=== PATIENT | female | born 1995 | race American Indian/Alaskan Native ===

== ENCOUNTER 2023-07-31 16:40 | Emergency (ER) | payer OTHER, SELFPAY ==
[2023-07-31] VITALS (12 sets, daily range): BP systolic 102–149; BP diastolic 68–92; PULSE 102–127; RESP 13–22; TEMP 36.8; O2SAT 94–100; BMI 38.0
--- NOTE | 2023-07-31 18:20 | ED_ITS ---
HPI - Headache General Chief Complaint: Headache Stated Complaint: seizures T-14 headaches Time Seen by Provider: 07/31/23 18:03 Mode of arrival: Ambulatory History of Present Illness HPI Narrative: Patient 28-year-old female history of asthma migraine headaches presenting today with headache ongoing for the last 2 weeks. She reports that she has been to the ED twice a day in [place] she was received a migraine cocktail she reports that it does not really help. She takes Nurtec and ibuprofen along with gabapentin for a seizure disorder. She reports over the last 3 days her headache has gotten worse she. She has had multiple episodes of diarrhea and vomiting she reports about 5-6 episodes of diarrhea daily and about 3 times vomiting. Her headache has gotten worse. She sensitive to light and noise. Admits to a fever couple days ago but is currently afebrile. She has minimal neck pain. Some mild abdominal pain. She thinks she may have had a CT but really unsure but this is atypical for her migraine headache to last this long. She is visiting from [place] set to work at the [employer] for the next month during shut down Related Data Allergies Allergy/AdvReac Type Severity Reaction Status Date / Time latex AdvReac Hives Verified 07/31/23 16:51 Patient History Social History Smoking Status: Never smoker Smoking Status: Never smoker Substance Use Type: does not use Exam Initial Vital Signs Initial Vital Signs: Vital Signs Temperature 98.2 F 07/31/23 16:51 Pulse Rate 102 H 07/31/23 16:51 Respiratory Rate 18 07/31/23 16:51 Blood Pressure 149/92 H 07/31/23 16:51 Pulse Oximetry 100 07/31/23 16:51 Oxygen Delivery Method Room Air 07/31/23 16:51 GENERAL: Alert pleasant 28-year-old female appears mildly uncomfortable and in [no acute] distress. HEENT: Head atraumatic,EOMI, pupils reactive, face symmetric, no meningeal sign negative Kernig and Brudzinski sign CARDIOVASCULAR: Regular rate and rhythm without murmurs, rubs or gallops. RESPIRATORY: Breath sounds equal bilaterally, no wheezes rales or rhonchi. ABDOMEN: Soft, nontender. Normoactive bowel sounds all 4 quadrants. No guarding or rebound. EXTREMITIES: Normal range of motion, no clubbing or edema. Neurovascularly intact NEUROLOGICAL: Alert and oriented x4.Normal gait and speech. SKIN: Warm, dry, no laceration, no petechiae, no rashes or lesions. Course Orders Ordered: ED Orders 07/31/23 18:15 CBC Auto Diff [Complete Blood Count AUTO DIFF] Stat CMP [Comprehensive Metabolic Panel] Stat Lactate (Lactic Acid) Stat 07/31/23 18:50 Covid-19 + FLU A/B + RSV - PCR Stat 07/31/23 18:56 CT head/brain wo con Stat Discontinued Medications Dexamethasone (Dexamethasone 10 Mg/Ml Vial) 6 mg IV NOW ONE Stop: 07/31/23 18:57 Last Admin: 07/31/23 19:27 Dose: 6 mg Documented By: SYEDA Dihydroergotamine Mesylate (Dihydroergotamine 1 Mg/Ml Ampul) 1 mg IV NOW ONE Stop: 07/31/23 18:57 Diphenhydramine HCl (Diphenhydramine 50 Mg/Ml Vial) 25 mg IV NOW ONE Stop: 07/31/23 18:26 Last Admin: 07/31/23 19:24 Dose: 25 mg Documented By: SYEDA Sodium Chloride (Normal Saline 0.9%) 1,000 mls @ 1,000 mls/hr IV BOLUS ONE Stop: 07/31/23 19:24 Last Infusion: 07/31/23 19:45 Dose: Infused Documented By: Admin: 07/31/23 18:43 Dose: 1,000 mls/hr Documented By: OFE Ketorolac Tromethamine (Ketorolac 30 Mg/Ml Vial) 15 mg IV NOW ONE Stop: 07/31/23 18:26 Last Admin: 07/31/23 19:28 Dose: 15 mg Documented By: SYEDA Prochlorperazine (Prochlorperazine 10 Mg/2 Ml Vial) 10 mg IV NOW ONE Stop: 07/31/23 18:26 Last Admin: 07/31/23 19:25 Dose: 10 mg Documented By: SYEDA Vital Signs Vital signs: Vital Signs - 8 hr 07/31/23 19:00 07/31/23 19:00 07/31/23 19:14 Pulse Rate 125 H Respiratory Rate 13 Blood Pressure 122/73 118/75 Pulse Oximetry 96 07/31/23 19:14 07/31/23 19:25 07/31/23 19:30 Pulse Rate 126 H 126 H 122 H Respiratory Rate 19 19 Blood Pressure 118/75 Pulse Oximetry 97 97 07/31/23 19:32 07/31/23 19:32 Pulse Rate 121 H Respiratory Rate 17 Blood Pressure 125/80 Pulse Oximetry 97 MDM - Headache Lab Data 07/31/23 18:15 07/31/23 18:15 Labs: Lab Results 07/31/23 07/31/23 Range/Units 18:15 18:50 WBC 8.9 (4.5-11.0) X10^3/uL RBC 4.30 (4.0-5.2) X10^6/uL Hgb 13.4 (12.0-16.0) g/dL Hct 39.5 (36-46) % MCV 91.7 (80-100) fL MCH 31.1 (26-34) PG MCHC 33.9 (30-36) % RDW 12.5 (11.6-14.8) % Plt Count 238 (150-400) X10^3/uL Neut % (Auto) 90.1 H (50-75) % Lymph % (Auto) 9.1 L (25-40) % Potter % (Auto) 0.6 L (3-14) % Eos % (Auto) 0.0 L (2-4) % Baso % (Auto) 0.2 (0-2) % Neut # (Auto) 8000 H (6880-2859) /uL Lymph # (Auto) 800 L (6922-2544) /uL Potter # (Auto) 100 (0-900) /uL Eos # (Auto) 0 (0-450) /uL Baso # (Auto) 0 (0-100) /uL Sodium 142 (137-145) mmol/L Potassium 3.9 (3.4-5.1) mmol/L Chloride 113 H (98-107) mmol/L Carbon Dioxide 21 L (22-32) mmol/L BUN 10 (7-17) mg/dL Creatinine 0.68 (0.52-1.04) mg/dL Estimated GFR > 60 (>60) mL/min BUN/Creatinine Ratio 14.7 (6-22) Glucose 140 H (70-100) mg/dL Lactate 3.2 H (0.7-2.1) mmol/L Calcium 9.0 (8.4-10.2) mg/dL Total Bilirubin 0.4 (0.2-1.3) mg/dL AST 23 (14-36) IU/L ALT 23 (<35) IU/L Alkaline Phosphatase 53 (38-126) U/L Total Protein 7.6 (6.3-8.2) g/dL Albumin 4.4 (3.5-5.0) g/dL Globulin 3.2 (1.7-4.1) g/dL Albumin/Globulin Ratio 1.4 (1.0-2.8) SARS-CoV-2 (PCR) Negative (Negative) Influenza A (RT-PCR) Flu a negative (NEGATIVE) Influenza B (RT-PCR) Flu b negative (NEGATIVE) RSV (PCR) Negative (Negative) Point of Care Testing Test Results Negative Urine Dip Bedside Urine Glucose Negative Bedside Urine Bilirubin - Negative Bedside Urine Ketone ++ 40 Urine Specific Zearing 1.015 Bedside Urine Occult Blood - Negative Bedside Urine pH 6.0 Bedside Urine Protein - Negative Bedside Urine Urobilinogen - Negative Bedside Urine Nitrite - Negative Bedside Urine Leukocytes - Negative Esterase Imaging Data CT scan - head: Radiologist's Impression: PROCEDURE: CT HEAD/BRAIN WO CON INDICATIONS: on going headache x 2 weeks TECHNIQUE: Noncontrast 4.5 mm thick angled axial sections acquired from the foramen magnum to the vertex, with coronal and sagittal reformats. For radiation dose reduction, the following was used: automated exposure control, adjustment of mA and/or kV according to patient size. COMPARISON: None. FINDINGS: Image quality: Diagnostic. CSF spaces: Basal cisterns are patent. No extra-axial fluid collections. Ventricles are normal in size and shape. Brain: No midline shift. No intracranial masses or hemorrhage. Mendez-white matter interface is normal. Skull and face: Calvarium and visualized facial bones are intact, without suspicious lesions. Sinuses: Visualized sinuses and mastoids are clear. IMPRESSION: No acute intracranial pathology. MDM Narrative Medical decision making narrative: Patient 28-year-old female history of migraine headaches presenting today for an ongoing migraine headache with nausea vomiting and diarrhea for the last 3 days. She reports fever at home but is afebrile here. No concern for meningitis or encephalitis at this time she appears uncomfortable but well. Discussed with her migraine cocktail which he is hesitant have she has had it before and it does not typically work. However with her nausea vomiting I do think that Compazine would be appropriate along with some abdominal cramping Toradol may help. If she continues to have headache will give DHE she is agreeable to this plan. She is unclear she has had CT head. Will get a CT scan today we do not have access to records from [place]. CT head is negative Blood work has been reviewed, she had a lactate of 3.2 no leukocytosis chloride 113 bicarb 21 glucose 140 viral panel negative Patient was quite tachycardic in the ED but afebrile. With ongoing headache. CT does not show any through intracranial mass or hemorrhage. Symptoms are most consistent with a persistent migraine. Unfortunately before I could go over any of patient's results she left was unable to discuss any of this with her. She overall did not appear toxic no concern for meningitis. Patient eloped Discharge Plan Departure Patient Disposition: Left Against Medical Advice Clinical Impression: Patient left before treatment completed Referrals: Miscellaneous,Doctor, [Primary Care Provider] - Stand Alone Forms: Patient Portal/API, Against Medical Advice
[2023-07-31 18:33] LABS: Add Manual Diff / Slide Review NO; Basophils Absolute Auto 0 /uL (0-100); Basophils Percent Auto 0.2 % (0-2); Eosinophils Absolute Auto 0 /uL (0-450); Hematocrit 39.5 % (36-46); Hemoglobin 13.4 g/dL (12.0-16.0); Lymphocytes Absolute Auto 800 /uL (1100-4500); Lymphocytes Percent Auto 9.1 % (25-40); Mean Corpuscular HGB Conc 33.9 % (30-36); Mean Corpuscular Hemoglobin 31.1 PG (26-34); Mean Corpuscular Volume 91.7 fL (80-100); Monocytes Absolute Auto 100 /uL (0-900); Monocytes Percent Auto 0.6 % (3-14); Neutrophils Absolute Auto 8000 /uL (1500-7000); Neutrophils Percent Auto 90.1 % (50-75); Platelet Count 238 X10^3/uL (150-400); Red Cell Distribution Width 12.5 % (11.6-14.8); White Blood Cell Count 8.9 X10^3/uL (4.5-11.0)
[2023-07-31] MEDS: SODIUM CHLORIDE 0.9% 1,000 ML 1000 ML IV (18:43)
[2023-07-31 18:49] LABS: Lactate (Lactic Acid) 3.2 mmol/L (0.7-2.1)
[2023-07-31 18:50] LABS: Alanine Aminotransferase 23 IU/L (<35); Albumin 4.4 g/dL (3.5-5.0); Albumin Globulin Ratio 1.4 (1.0-2.8); Alkaline Phosphatase 53 U/L (38-126); Aspartate Aminotransferase 23 IU/L (14-36); BUN Creatinine Ratio 14.7 (6-22); Bilirubin Total 0.4 mg/dL (0.2-1.3); Blood Urea Nitrogen 10 mg/dL (7-17); Carbon Dioxide 21 mmol/L (22-32); Chloride 113 mmol/L (98-107); Estimated Glomerular Filt Rate > 60 mL/min (>60); Globulin 3.2 g/dL (1.7-4.1); Glucose 140 mg/dL (70-100); HEMOLYSIS < 15 (0-50); Potassium 3.9 mmol/L (3.4-5.1); Sodium 142 mmol/L (137-145); Total Protein 7.6 g/dL (6.3-8.2)
--- NOTE | 2023-07-31 18:56 | DI.CT.S_ITS ---
PROCEDURE: CT HEAD/BRAIN WO CON INDICATIONS: on going headache x 2 weeks TECHNIQUE: Noncontrast 4.5 mm thick angled axial sections acquired from the foramen magnum to the vertex, with coronal and sagittal reformats. For radiation dose reduction, the following was used: automated exposure control, adjustment of mA and/or kV according to patient size. COMPARISON: None. FINDINGS: Image quality: Diagnostic. CSF spaces: Basal cisterns are patent. No extra-axial fluid collections. Ventricles are normal in size and shape. Brain: No midline shift. No intracranial masses or hemorrhage. Mendez-white matter interface is normal. Skull and face: Calvarium and visualized facial bones are intact, without suspicious lesions. Sinuses: Visualized sinuses and mastoids are clear. IMPRESSION: No acute intracranial pathology. Dictated by: Leilani Hernandez M.D. on 07/31/2023 at 19:36 Approved by: Leilani Hernandez M.D. on 07/31/2023 at 19:40
--- NOTE | 2023-07-31 19:11 | PC.NURSE ---
Report given to [place]
[2023-07-31] MEDS: diphenhydrAMINE 50 MG/ML VIAL 25 MG IV (19:24)
[2023-07-31] MEDS: PROCHLORPERAZINE 10 MG/2 ML VIAL IV (19:25)
[2023-07-31] MEDS: DEXAMETHASONE 10 MG/ML VIAL 6 MG IV (19:27)
[2023-07-31] MEDS: KETOROLAC 30 MG/ML VIAL 15 MG IV (19:28)
[2023-07-31 19:49] LABS: Influenza A - CEPHEID Flu A NEGATIVE (NEGATIVE); Influenza B - CEPHEID Flu B NEGATIVE (NEGATIVE); Respiratory Syncytial Virus Negative (Negative)
[2023-07-31 19:50] LABS: COVID-19 CEPHEID 4-PLEX PCR Negative (Negative)
--- NOTE | 2023-07-31 19:55 | PC.NURSE ---
Pt required a one person assist with standing and pivoting to a wheelchair. Pt reports difficulty ambulating to weakness and pain. Pt and pt's daughter reports that this is not the pt's baseline for ambulation. Pt denies dizziness.
[2023-07-31 20:05] LABS: Reflexed Lactate in 2 Hours Y
--- NOTE | 2023-07-31 20:06 | PC.NURSE ---
5: This RN got reports from day shift and went into room to assess patient. Pt confirms CC and medical hx with this RN. This RN updates pt on plan of care and that we are waiting for CT results. This RN also give pt education the medications that have been ordered to treat her migraine. Pt is agreeable to plan.
--- NOTE | 2023-07-31 20:08 | PC.NURSE ---
1999 ED TIRE INSPECTOR reports to this RN that patient wants to leave. Pt proceeds to walk out of the department and refuses to speak with this RN. This RN confirms that pt has removed the IV herself and attempts to speak with pt. Pt refuses and leaves with her cathleen family members. Pt walks with a steady gait and speaks in full clear sentences.
== END 2023-07-31 20:11 | disposition left against medical advice (07) ==
PROVIDERS: Emergency Provider Emergency Medicine
DX: G43.909 Migraine, unspecified, not intractable, without status migrainosus (principal); R11.2 Nausea with vomiting, unspecified; R19.7 Diarrhea, unspecified; R00.0 Tachycardia, unspecified; Z53.29 Procedure and treatment not carried out because of patient's decision for other reasons
CPT/HCPCS: 0241U; 36415; 70450; 80053; 81003; 81025; 83605; 85025; 93005; 93010; 96374; 96375; 99284; J0780; J1100; J1200; J1885

== ENCOUNTER 2023-08-01 12:26 | Emergency (ER) | payer OTHER, SELFPAY ==
[2023-08-01] VITALS (10 sets, daily range): BP systolic 124–146; BP diastolic 67–82; PULSE 73–105; RESP 13–25; TEMP 36.3; O2SAT 99–100; BMI 38.7
--- NOTE | 2023-08-01 12:49 | ED_ITS ---
HPI - Seizure General Chief Complaint: Seizure Stated Complaint: seizure, headache Time Seen by Provider: 08/01/23 12:48 Source: patient Mode of arrival: Ambulatory Limitations: no limitations History of Present Illness HPI Narrative: 28-year-old female with history of asthma, migraine headaches and seizure disorder. Patient was seen last night but left in the department but or completing her workup. Patient presents today with complaint of seizure activity x2. Reports that she left her seizure medication in [place]. She takes Nurtec and ibuprofen along with gabapentin 800mg BID for seizure disorder. Patient states she has been out of her gabapentin for the past 3 days. She accidentally left it in [place] before she came out here. She states she has had persistent headache for the past week she does get a history of migraines she has had some numbness tingling of her right cheek arm which she states has happened with her past migraines as well. She states it seems more intense. Her vision has been sort of spotty. Patient states no syncope. No fevers. No neck pain. No chest pain, no shortness of breath. She has had some nausea and vomiting. She has had a little bit of diarrhea but no black or bloody stools. No urinary symptoms. No bowel or bladder incontinence. She states she would 2 witnessed episodes of seizure activity by her sister. Sister is not present to give more information. She states she has epileptic seizures but does not know the names of them. Patient does state she sees Dr. Valenzuela in [facility] as her regular neurologist. She states she has been seizure-free for a couple years. She notes that she has had multiple surgeries including cholecystectomy, , tubal ligation, bilateral shoulder surgeries and cyst removal. She denies tobacco, alcohol or recreational drugs. She is currently staying in the area with family while working at the [employer]. Related Data Previous Rx's Medication Instructions Recorded gwmkkwnbng-baphalzaoneqo-bqrsuekj 1 cap PO Q6H PRN pain #10 caps 08/01/23 50 mg-300 mg-40 mg capsule (Fioricet) gabapentin 800 mg tablet 800 mg PO BID #60 tabs 08/01/23 ondansetron 4 mg disintegrating 4 mg PO QID PRN nausea and 08/01/23 tablet vomiting #10 tabs Allergies Allergy/AdvReac Type Severity Reaction Status Date / Time latex AdvReac Hives Verified 07/31/23 16:51 Review of Systems Review of Systems ROS Unobtainable: All systems reviewed & are unremarkable except as noted in HPI and below Patient History Social History Smoking Status: Never smoker Smoking Status: Never smoker Substance Use Type: does not use Exam Narrative Exam Narrative: GEN: Well-appearing female, alert and oriented x 3, patient appears to be in mild distress. HEENT: Atraumatic, pupils are equal round reactive to light, positive for photophobia, extraocular movements are intact, nares are clear, TMs are clear with no fluid, there is no conjunctival pallor. Throat is clear without any exudates, erythema, tonsillar enlargement or uvular deviation, no facial droop. HEART: Regular rate and rhythm without murmur, clicks, rubs. Pulses are equal in upper and lower extremities LUNGS:Lungs clear to auscultation, no wheezes, rales, crackles, chest moves symmetrically ABD:bowel sounds normal, soft, non-tender, no guarding, rebound, rigidity, no masses noted, no hepatosplenomegaly :No CVA tenderness MSCL: Non-tender, no muscle atrophy, muscles strength 5/5 upper and lower extremities, full range of motion, normal gait NEURO:CN 2-12 intact, sensation normal. Initial Vital Signs Initial Vital Signs: Vital Signs Temperature 97.3 F L 08/01/23 12:31 Pulse Rate 105 H 08/01/23 12:31 Respiratory Rate 18 08/01/23 12:31 Blood Pressure 146/82 H 08/01/23 12:31 Pulse Oximetry 100 08/01/23 12:31 Oxygen Delivery Method Room Air 08/01/23 12:31 Course Orders Ordered: ED Orders 08/01/23 12:51 EKG-12 Lead Stat 08/01/23 13:02 CT angio head and neck Stat 08/01/23 13:05 CBC Auto Diff [Complete Blood Count AUTO DIFF] Stat CMP [Comprehensive Metabolic Panel] Stat ETOH [Ethanol (ETOH)] Stat 08/01/23 13:59 Urine Drug Screen, Rapid Stat Urine Microscopic Stat Discontinued Medications Gabapentin (Gabapentin 400 Mg Capsule) 800 mg PO NOW ONE Stop: 08/01/23 13:16 Last Admin: 08/01/23 13:22 Dose: 800 mg Documented By: JOHANA Sodium Chloride (Normal Saline 0.9%) 1,000 mls @ 1,000 mls/hr IV BOLUS ONE Stop: 08/01/23 13:50 Last Infusion: 08/01/23 16:03 Dose: Infused Documented By: Infusion: 08/01/23 15:10 Dose: 1,000 mls/hr Documented By: Admin: 08/01/23 13:22 Dose: 1,000 mls/hr Documented By: JOHANA Acetaminophen (Ofirmev) 1,000 mg in 100 mls @ 400 mls/hr IV NOW ONE Stop: 08/01/23 13:23 Last Infusion: 08/01/23 14:01 Dose: Infused Documented By: Admin: 08/01/23 13:31 Dose: 400 mls/hr Documented By: JOHANA Ketorolac Tromethamine (Ketorolac 30 Mg/Ml Vial) 15 mg IV NOW ONE Stop: 08/01/23 17:00 Last Admin: 08/01/23 17:10 Dose: 15 mg Documented By: HORACE Lorazepam (Lorazepam 2 Mg/Ml Inj) 0.5 mg IV NOW ONE Stop: 08/01/23 13:10 Last Admin: 08/01/23 13:23 Dose: 0.5 mg Documented By: JOHANA Morphine Sulfate (Morphine 4 Mg/Ml Inj) 4 mg IV NOW ONE Stop: 08/01/23 14:58 Last Admin: 08/01/23 15:17 Dose: 4 mg Documented By: HORACE Ondansetron HCl (Ondansetron 4 Mg/2 Ml Inj) 4 mg IV NOW ONE Stop: 08/01/23 15:14 Last Admin: 08/01/23 15:17 Dose: 4 mg Documented By: HORACE Vital Signs Vital signs: Vital Signs - 8 hr 08/01/23 12:31 08/01/23 12:45 08/01/23 12:50 Temperature 97.3 F L Pulse Rate 105 H 105 H 101 H Respiratory Rate 18 20 20 Blood Pressure 146/82 H 130/67 Pulse Oximetry 100 100 99 Oxygen Delivery Method Room Air Room Air Room Air 08/01/23 12:55 08/01/23 13:00 08/01/23 13:45 Temperature Pulse Rate 87 87 95 H Respiratory Rate 25 H 25 H 21 Blood Pressure Pulse Oximetry 100 100 100 Oxygen Delivery Method Room Air Room Air Room Air 08/01/23 13:50 08/01/23 14:10 08/01/23 14:55 Temperature Pulse Rate 86 73 87 Respiratory Rate 14 24 Blood Pressure 124/76 Pulse Oximetry 100 100 100 Oxygen Delivery Method Room Air Room Air Room Air 08/01/23 15:30 Temperature Pulse Rate 78 Respiratory Rate 13 Blood Pressure Pulse Oximetry 100 Oxygen Delivery Method Room Air MDM - Seizure Lab Data 08/01/23 13:05 08/01/23 13:05 Labs: Lab Results 08/01/23 08/01/23 Range/Units 13:05 13:59 WBC 13.9 H D (4.5-11.0) X10^3/uL RBC 3.97 L (4.0-5.2) X10^6/uL Hgb 12.4 (12.0-16.0) g/dL Hct 36.2 (36-46) % MCV 91.2 (80-100) fL MCH 31.2 (26-34) PG MCHC 34.2 (30-36) % RDW 12.8 (11.6-14.8) % Plt Count 237 (150-400) X10^3/uL Neut % (Auto) 76.3 H (50-75) % Lymph % (Auto) 15.9 L (25-40) % [place] % (Auto) 7.3 (3-14) % Eos % (Auto) 0.1 L (2-4) % Baso % (Auto) 0.4 (0-2) % Neut # (Auto) 18788 H (1220-0651) /uL Lymph # (Auto) 2200 (3832-7293) /uL [place] # (Auto) 1000 H (0-900) /uL Eos # (Auto) 0 (0-450) /uL Baso # (Auto) 100 (0-100) /uL Sodium 143 (137-145) mmol/L Potassium 3.6 (3.4-5.1) mmol/L Chloride 113 H (98-107) mmol/L Carbon Dioxide 25 (22-32) mmol/L BUN 15 (7-17) mg/dL Creatinine 0.74 (0.52-1.04) mg/dL Estimated GFR > 60 (>60) mL/min BUN/Creatinine Ratio 20.3 (6-22) Glucose 111 H (70-100) mg/dL Calcium 9.2 (8.4-10.2) mg/dL Total Bilirubin 0.4 (0.2-1.3) mg/dL AST 19 (14-36) IU/L ALT 21 (<35) IU/L Alkaline Phosphatase 48 (38-126) U/L Total Protein 7.3 (6.3-8.2) g/dL Albumin 4.2 (3.5-5.0) g/dL Globulin 3.1 (1.7-4.1) g/dL Albumin/Globulin Ratio 1.4 (1.0-2.8) Urine RBC None seen (0-5/HPF) Urine WBC 1-5/hpf (0-5/HPF) Ur Squamous Epith Cells 10-30 /hpf H (0-5/HPF) Urine Bacteria Many (>30) H (None) Urine Mucus 1+ H (Negative) Ur Culture Indicated? Cult not indicated Vol Urine Centrifuged 10ml (spun) U Opiates 300ng/mL cut Positive H (Negative) Ur Oxycodone Screen Negative (Negative) Urine Methadone Screen Negative (Negative) Ur Barbiturates Screen Negative (Negative) U Tricyclic Antidepress Positive H (Negative) Ur Phencyclidine Scrn Negative (Negative) Ur Amphetamines Screen Negative (Negative) U Methamphetamines Scrn Negative (Negative) Ur MDMA Scrn (Ecstasy) Negative (Negative) U Benzodiazepines Scrn Positive H (Negative) Urine Cocaine Screen Negative (Negative) U Marijuana (THC) Screen Negative (Negative) Urine pH Normal (Normal) Urine Specific [place] Normal (Normal) Ethyl Alcohol < 10 ( - 10) mg/dL Ur Creatinine Normal (Normal) Point of Care Testing Test Results Negative Urine Dip Bedside Urine Glucose Negative Bedside Urine Bilirubin - Negative Bedside Urine Ketone +/- 5 Urine Specific [place] 1.025 Bedside Urine Occult Blood - Negative Bedside Urine pH 6.0 Bedside Urine Protein +/- 15 Bedside Urine Urobilinogen - Negative Bedside Urine Nitrite - Negative Bedside Urine Leukocytes - Negative Esterase Imaging Data CT scan - head: Radiologist's Impression: OSMEL RAMSEY??28??F??1995 ? Allergy/Adv: latex Close Head CT (Signed) Leilani Hernandez - 07/31/23 Launch?[address] [place] [address] CT Scan Report Signed Patient: OSMEL RAMSEY MR#: [id number] : 1995 Acct:[id number] Age/Sex: 28 / F Date of Service: 07/31/23 Loc: ED Accession Number: [id number] Procedure: CT head/brain wo con Ordering Provider: Sirena Pagan D.O. PROCEDURE: CT HEAD/BRAIN WO CON INDICATIONS: on going headache x 2 weeks TECHNIQUE: Noncontrast 4.5 mm thick angled axial sections acquired from the foramen magnum to the vertex, with coronal and sagittal reformats. For radiation dose reduction, the following was used: automated exposure control, adjustment of mA and/or kV according to patient size. COMPARISON: None. FINDINGS: Image quality: Diagnostic. CSF spaces: Basal cisterns are patent. No extra-axial fluid collections. Ventricles are normal in size and shape. Brain: No midline shift. No intracranial masses or hemorrhage. Mendez-white matter interface is normal. Skull and face: Calvarium and visualized facial bones are intact, without suspicious lesions. Sinuses: Visualized sinuses and mastoids are clear. IMPRESSION: No acute intracranial pathology. Dictated by: Leilani Hernandez M.D. on 07/31/2023 at 19:36 Approved by: Leilani Hernandez M.D. on 07/31/2023 at 19:40 CTA - brain/neck: Radiologist's Impression: [address] [address] [address] Scan Report Signed Patient: OSMEL RAMSEY MR#: [id number] : 1995 Acct:[id number] Age/Sex: 28 / F Date of Service: 08/01/23 Loc: ED Accession Number: [id number] Procedure: CT angio head and neck Ordering Provider: Diandra Aj D.O. PROCEDURE: CT ANGIO HEAD AND NECK INDICATIONS: persistent santoyo, seizure, has history of seizures. TECHNIQUE: After the administration of intravenous contrast, 1 mm thick sections acquired from the aortic arch through the [place] of [place]. 3-dimensional hywjoem-fxuhfgmth-awkrfkqoob (MIP) and/or volume rendering reformats were acquired of the central intracranial vasculature and neck separately. For radiation dose reduction, the following was used: automated exposure control, adjustment of mA and/or kV according to patient size. COMPARISON: [facility], MR, MR BRAIN WITHOUT CONTRAST, 07/31/2023, 12:53. FINDINGS: Image quality: Diagnostic. BRAIN: CSF spaces: Ventricles are normal in size and shape. Basal cisterns are patent. No extra-axial fluid collections. Brain: No significant abnormality of the brain can be seen. Skull and face: Calvarium and facial bones appear intact, without suspicious lesions. Orbits appear normal. Sinuses: Sinuses and mastoids are clear. HEAD CT ANGIOGRAPHY: Anterior circulation: Intracranial internal carotid arteries are normal in size and flow. The flow within the paired anterior cerebral arteries is normal and symmetric. The flow within the middle cerebral arteries is normal and symmetric. The anterior communicating artery is seen. No aneurysms are seen. Posterior circulation: Visualized portions of the vertebral arteries demonstrate normal caliber, and join to form a normal appearing basilar artery. Flow within the posterior cerebral arteries is normal and symmetric. No aneurysms are seen. NECK CT ANGIOGRAPHY: Carotid system: The great vessels demonstrate a conventional anatomy as they arise from the aortic arch. The origins of the common carotid arteries appear patent. The common carotid arteries demonstrate normal caliber and courses. The bifurcation regions are both widely patent. The internal carotid arteries demonstrate normal calibers and courses. Posterior circulation: The origins of the vertebral arteries both appear widely patent. The more superior extracranial portions of both vertebral arteries also demonstrate normal courses and calibers. They join to form a normal appearing basilar artery. Soft tissues: Visualized neck soft tissues demonstrate no suspicious abnormalities. Bones: No suspicious bony lesions. Visualized cervical spine appears normally aligned. IMPRESSION: No acute process involving the arterial tree of the head and neck. Any quantitative measurements of stenosis were performed using NASCET criteria. Dictated by: Meena Beasley M.D. on 08/01/2023 at 14:51 Approved by: Meena Beasley M.D. on 08/01/2023 at 15:08 ECG Data Attestation: I personally reviewed and interpreted this ECG as follows: Interpretation: Sinus rhythm with sinus arrhythmia rate of 93 VA 152 QRS 84 QTC of 450. No acute ST elevation or depression noted. MDM Narrative Medical decision making narrative: 88-year-old female who presents with complaint of persistent migraine type headache she states consistent with her past but add reported to seizure episodes in the last 12 hours. She does have a history of seizure disorder states she is on gabapentin twice daily but ran out 3 days ago after traveling here from [place]. She states she is established with a neurologist have reached out for records. Patient was seen here last night left before her workup could be reviewed but had negative head CT, negative labs and respiratory panel and received steroids, Toradol, multi antiemetics, dihydroergotamine and fluids. Based on patient's symptoms we will repeat with a CT head and neck angio, she does not have any fever or meningeal type symptoms. She may just have run out of her medications and had persistent migraine but will perform some additional workup as well as labs. Her neuro exam is overall benign. On recheck patient still quite painful and uncomfortable after Tylenol had a dose of Ativan for nausea. Patient states feels like a seizures going to come on. Given additional dose of pain medication. CT head and neck angio has not negative. Patient states improve initially but then when walking around recurrences headache. She has ambulated in the department several times. Spoke with neurology from patient's office. They recommend restarting her gabapentin. They feel appropriate for her up in the short term if needed. But no other changes at this time. Discussed recommendations from patient's neurologist, she feels comfortable with this plan. Feels comfortable returning home we will give her a script for Zofran which she no longer has had left behind in [place] as well as a refill for her gabapentin. She thinks she is going to be in the area for about a month. We did discuss return precautions all questions answered. Patient feels comfortable with this plan. Also discussed no driving until cleared by Neurology. Discharge Plan Departure Patient Disposition: Home Clinical Impression: Seizure Activity Restrictions/Additional Instructions: Follow-up with neurology for recheck. I did speak with your neurology team today. You can not drive until cleared by Neurology. Restart your gabapentin and take this regularly. A prescription for your gabapentin 800 mg twice daily was sent to [facility] in [place] Prescriptions were also sent for Zofran, you can take 1 tablet every 6 hours as needed as well as Fioricet. Please return for fevers, recurrent symptoms, recurrent seizures, persistent vomiting or other new or concerning changes. Prescriptions: New gabapentin 800 mg tablet 800 mg PO BID Qty: 60 0RF ondansetron 4 mg tablet,disintegrating 4 mg PO QID PRN (Reason: nausea and vomiting) Qty: 10 0RF ojvjvyneax-ugswkymyzrjmh-tnbw [Fioricet] 50-300-40 mg capsule 1 cap PO Q6H PRN (Reason: pain) Qty: 10 0RF Referrals: Miscellaneous,DoctorMD [Primary Care Provider] - Oneal Shah MD [Non-Staff] - Stand Alone Forms: Patient Portal/API, Work Release Note
--- NOTE | 2023-08-01 13:02 | DI.CT.S_ITS ---
PROCEDURE: CT ANGIO HEAD AND NECK INDICATIONS: persistent santoyo, seizure, has history of seizures. TECHNIQUE: After the administration of intravenous contrast, 1 mm thick sections acquired from the aortic arch through the [place] of [place]. 3-dimensional hlpafbl-ysltncpam-rhzrnbfvwp (MIP) and/or volume rendering reformats were acquired of the central intracranial vasculature and neck separately. For radiation dose reduction, the following was used: automated exposure control, adjustment of mA and/or kV according to patient size. COMPARISON: [facility], MR, MR BRAIN WITHOUT CONTRAST, 07/31/2023, 12:53. FINDINGS: Image quality: Diagnostic. BRAIN: CSF spaces: Ventricles are normal in size and shape. Basal cisterns are patent. No extra-axial fluid collections. Brain: No significant abnormality of the brain can be seen. Skull and face: Calvarium and facial bones appear intact, without suspicious lesions. Orbits appear normal. Sinuses: Sinuses and mastoids are clear. HEAD CT ANGIOGRAPHY: Anterior circulation: Intracranial internal carotid arteries are normal in size and flow. The flow within the paired anterior cerebral arteries is normal and symmetric. The flow within the middle cerebral arteries is normal and symmetric. The anterior communicating artery is seen. No aneurysms are seen. Posterior circulation: Visualized portions of the vertebral arteries demonstrate normal caliber, and join to form a normal appearing basilar artery. Flow within the posterior cerebral arteries is normal and symmetric. No aneurysms are seen. NECK CT ANGIOGRAPHY: Carotid system: The great vessels demonstrate a conventional anatomy as they arise from the aortic arch. The origins of the common carotid arteries appear patent. The common carotid arteries demonstrate normal caliber and courses. The bifurcation regions are both widely patent. The internal carotid arteries demonstrate normal calibers and courses. Posterior circulation: The origins of the vertebral arteries both appear widely patent. The more superior extracranial portions of both vertebral arteries also demonstrate normal courses and calibers. They join to form a normal appearing basilar artery. Soft tissues: Visualized neck soft tissues demonstrate no suspicious abnormalities. Bones: No suspicious bony lesions. Visualized cervical spine appears normally aligned. IMPRESSION: No acute process involving the arterial tree of the head and neck. Any quantitative measurements of stenosis were performed using NASCET criteria. Dictated by: Meean Beasley M.D. on 08/01/2023 at 14:51 Approved by: Meena Beasley M.D. on 08/01/2023 at 15:08
--- NOTE | 2023-08-01 13:10 | PC.NURSE ---
PLUMBER CUB NOTE: records requested from at [facility] at 1310
[2023-08-01 13:14] LABS: Add Manual Diff / Slide Review NO; Basophils Absolute Auto 100 /uL (0-100); Basophils Percent Auto 0.4 % (0-2); Eosinophils Absolute Auto 0 /uL (0-450); Eosinophils Percent Auto 0.1 % (2-4); Hematocrit 36.2 % (36-46); Hemoglobin 12.4 g/dL (12.0-16.0); Lymphocytes Absolute Auto 2200 /uL (1100-4500); Lymphocytes Percent Auto 15.9 % (25-40); Mean Corpuscular HGB Conc 34.2 % (30-36); Mean Corpuscular Hemoglobin 31.2 PG (26-34); Mean Corpuscular Volume 91.2 fL (80-100); Monocytes Absolute Auto 1000 /uL (0-900); Monocytes Percent Auto 7.3 % (3-14); Neutrophils Absolute Auto 10600 /uL (1500-7000); Neutrophils Percent Auto 76.3 % (50-75); Platelet Count 237 X10^3/uL (150-400); Red Blood Cell Count 3.97 X10^6/uL (4.0-5.2); Red Cell Distribution Width 12.8 % (11.6-14.8); White Blood Cell Count 13.9 X10^3/uL (4.5-11.0)
[2023-08-01] MEDS: GABAPENTIN 400 MG CAPSULE 800 MG PO (13:22)
[2023-08-01] MEDS: SODIUM CHLORIDE 0.9% 1,000 ML 1000 ML IV (13:22)
[2023-08-01] MEDS: LORazepam 2 MG/ML INJ 0.5 MG IV (13:23)
[2023-08-01 13:24] LABS: Alanine Aminotransferase 21 IU/L (<35); Albumin 4.2 g/dL (3.5-5.0); Albumin Globulin Ratio 1.4 (1.0-2.8); Alkaline Phosphatase 48 U/L (38-126); Aspartate Aminotransferase 19 IU/L (14-36); BUN Creatinine Ratio 20.3 (6-22); Bilirubin Total 0.4 mg/dL (0.2-1.3); Blood Urea Nitrogen 15 mg/dL (7-17); Calcium 9.2 mg/dL (8.4-10.2); Carbon Dioxide 25 mmol/L (22-32); Chloride 113 mmol/L (98-107); Estimated Glomerular Filt Rate > 60 mL/min (>60); Ethanol (ETOH) < 10 mg/dL; Globulin 3.1 g/dL (1.7-4.1); Glucose 111 mg/dL (70-100); HEMOLYSIS < 15 (0-50); Potassium 3.6 mmol/L (3.4-5.1); Sodium 143 mmol/L (137-145); Total Protein 7.3 g/dL (6.3-8.2)
[2023-08-01] MEDS: ACETAMINOPHEN IV 1,000 MG/100 ML VIAL 400 MG IV (13:31)
--- NOTE | 2023-08-01 13:56 | PC.NURSE ---
This RN checks on patient. Pt reports worsening RIGHT sided weakness, 10/10 headache, change in vision in her right eye as bright light flashes, and trouble balancing. Reports these symptoms began at 2230 last night. 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 Pt has noticeable tremors in her RIGHT hand and RIGHT leg upon evaluation. Pt has equal sensation to touch in her face. Pupils were 4mm equal and reactive. Reports first seizure at 0600 and second seizure at 1000 today. Provider Madai made aware of patient presentation. DI asked to take patient christian. DI comes to bedside.
[2023-08-01 14:15] LABS: UR Morphine/Opiate cutoff 300 Positive (Negative); Ur Creatinine Normal (Normal); Ur Specific Gravity Normal (Normal); Urine Benzodiazepines Positive (Negative); Urine Cocaine Negative (Negative); Urine Tetrahydrocannabinol Negative (Negative); Urine Tricyclic Antidepressant Positive (Negative); Urine pH Normal (Normal)
--- NOTE | 2023-08-01 14:15 | PC.NURSE ---
Pt reports she feels like a seizure is going to happen soon. Provider Madai made aware. Seizure pads remain in place. Suction at bedside. Door open. Call light within reach. Encouraged to call for any changes.
[2023-08-01 14:16] LABS: Urine Amphetamines Negative (Negative); Urine Barbiturates Negative (Negative); Urine MDMA Negative (Negative); Urine Methadone Negative (Negative); Urine Methamphetamines Negative (Negative); Urine Oxycodone Negative (Negative); Urine Phencyclidine Negative (Negative)
[2023-08-01 14:31] LABS: Bacteria Urine Many (>30); Culture Indicated Urine Cult Not Indicated; Mucus Urine 1+ (Negative); RBC Urine None Seen (0-5/HPF); Squamous Epithelial Cell Urine 10-30 /HPF (0-5/HPF); Urine Volume 10mL (spun); WBC Urine 1-5/HPF (0-5/HPF)
[2023-08-01] MEDS: ONDANSETRON 4 MG/2 ML INJ IV (15:17)
[2023-08-01] MEDS: MORPHINE 4 MG/ML INJ IV (15:17)
--- NOTE | 2023-08-01 16:04 | PC.NURSE ---
Pt on her phone while in room. Pt reports morphine helped for awhile, now the pain is coming back. States her nausea is better.
--- NOTE | 2023-08-01 16:24 | PC.NURSE ---
Pt ambulated around the department and went to the bathroom. Pt reports headache worsening, nauseous after getting back into bed.
[2023-08-01] MEDS: KETOROLAC 30 MG/ML VIAL 15 MG IV (17:10)
== END 2023-08-01 17:15 | disposition home or self-care (01) ==
PROVIDERS: Emergency Provider Emergency Medicine
DX: G40.909 Epilepsy, unspecified, not intractable, without status epilepticus (principal)
CPT/HCPCS: 36415; 70496; 70498; 80053; 80305; 80320; 81003; 81015; 81025; 85025; 93005; 93010; 96365; 96375; 99284; J0136; J1885; J2060; J2270; J2405; Q9967

== ENCOUNTER 2023-08-04 11:14 | Emergency (ER) | payer OTHER, SELFPAY ==
[2023-08-04] VITALS (14 sets, daily range): BP systolic 111–152; BP diastolic 64–105; PULSE 63–122; RESP 14–23; TEMP 37.1; O2SAT 95–99; BMI 38.7
--- NOTE | 2023-08-04 11:24 | ED_ITS ---
HPI - Abdominal Pain <Tristan Yee PA-C - Last Filed: 08/04/23 14:57> General Chief Complaint: Headache Stated Complaint: N/V/D, stomach cramps, headache Time Seen by Provider: 08/04/23 11:24 History of Present Illness HPI narrative: this is a 28-year-old female presents emergency department due to continued migraine symptoms for the last week.. She states she was a history of migraines. States that during her migraines the right side of her face occasionally goes numb as well as having some numbness in her right upper extremity and weakness. She was seen here 3 days ago and received a CTA head and neck which was unremarkable. She also received pain medications for her migraine which temporarily improved the pain. She states she has a history of seizures and was recommended to start taking her gabapentin by her neurologist which she has not [place]. She states that her symptoms are continuing include occluding ?colored dots? affecting her vision as well as a headache. She states that the headache is severe enough to cause some nausea and vomiting occasionally. Patient states that she was taken ?30 ibuprofen pills? over the last couple of days and has not helped with the pain. Related Data Previous Rx's Medication Instructions Recorded [id number] 1 cap PO Q6H PRN pain #10 caps 08/01/23 50 mg-300 mg-40 mg capsule (Fioricet) gabapentin 800 mg tablet 800 mg PO BID #60 tabs 08/01/23 ondansetron 4 mg disintegrating 4 mg PO QID PRN nausea and 08/01/23 tablet vomiting #10 tabs sumatriptan succinate 50 mg tablet See Rx Instructions PO .COMPLEX 08/04/23 #10 tabs Allergies Allergy/AdvReac Type Severity Reaction Status Date / Time latex AdvReac Hives Verified 08/04/23 11:31 Review of Systems <Tristan Yee PA-C - Last Filed: 08/04/23 14:57> Review of Systems Narrative: GENERAL: Denies chills, fatigue, malaise, fever, sweats. HEENT: Reports headache, changes in vision, Denies sinus pain, ear pain, sore throat, difficulty swallowing, dizziness. RESPIRATORY: Denies dyspnea, cough, wheezing, hemoptysis, sputum. CARDIOVASCULAR: Denies chest pain, palpitations, orthopnea, edema, GASTROINTESTINAL: Denies nausea, vomiting, abdominal pain, diarrhea, constipation, melena. : Denies dysuria, frequency, incontinence, hematuria, urinary retention. MUSCULOSKELETAL: denies weakness, joint pain, or bony pain SKIN: Denies rash, skin lesions, or other NEUROLOGIC: Reports numbness to the right side of her face as well as right upper extremity. Denies weakness, headache, , change in speech, confusion, seizures, incoordination. PSYCHIATRIC: No concerning psychosocial issues. 12 point review of systems is negative except for those stated above Patient History <Tristan Yee PA-C - Last Filed: 08/04/23 14:57> Social History Smoking Status: Current every day smoker Smoking Status: Never smoker Substance Use Type: does not use Exam <Tristan Yee PA-C - Last Filed: 08/04/23 14:57> Narrative Exam Narrative: GENERAL: Well-developed patient, in mild distress. HEAD: Atraumatic. Normocephalic. EYES: Pupils equal round and reactive. Extraocular motions intact. No scleral icterus. No injection or drainage. ENT: Nose without bleeding, purulent drainage. Throat without erythema, tonsillar hypertrophy or exudate. Airway patent. NECK: Trachea midline. Non tender EXTREMITIES: No edema or joint tenderness. NEURO: AOx3. Possible small amount of drooping to the right side of the face. No significant abnormalities noted in strength or sensation to the right side. SKIN: No rash or erythema of visible areas CARDIOVASCULAR: Regular rate and rhythm without murmurs, gallops, or rubs. RESPIRATORY: Clear to auscultation. Breath sounds equal bilaterally. No wheezes, rales, or rhonchi. GASTROINTESTINAL: Abdomen soft, non-tender, nondistended. BACK: Nontender without deformity or crepitance. No flank tenderness. Initial Vital Signs Initial Vital Signs: Vital Signs Pulse Rate 122 H 08/04/23 11:21 Blood Pressure 152/95 H 08/04/23 11:21 Pulse Oximetry 99 08/04/23 11:21 <Sirena Pagan DO - Last Filed: 08/04/23 15:15> Initial Vital Signs Initial Vital Signs: Vital Signs Pulse Rate 122 H 08/04/23 11:21 Blood Pressure 152/95 H 08/04/23 11:21 Pulse Oximetry 99 08/04/23 11:21 Procedures <Sirena Pagan DO - Last Filed: 08/04/23 15:15> Lumbar Puncture Time Out Performed: Yes Patient Position: upright Skin Prep: Povidone-Iodine 1% Local Anesthetic: lidocaine 1% Amount of anesthesia used (mL): 5 Spinal Needle Gauge: 22G Interspace Used: L4-L5 Complications: Need to have other Practitioner Attempt and unable to obtain CSF Course <Tristan Yee PA-C - Last Filed: 08/04/23 14:57> Orders Ordered: ED Orders 08/04/23 11:38 CBC Auto Diff [Complete Blood Count AUTO DIFF] Stat CMP [Comprehensive Metabolic Panel] Stat Discontinued Medications Dexamethasone (Dexamethasone 10 Mg/Ml Vial) 10 mg IV NOW ONE Stop: 08/04/23 11:50 Last Admin: 08/04/23 12:10 Dose: 10 mg Documented By: XUAN Dihydroergotamine Mesylate (Dihydroergotamine 1 Mg/Ml Ampul) 1 mg IV NOW ONE Stop: 08/04/23 11:50 Last Admin: 08/04/23 12:11 Dose: 1 mg Documented By: XUAN Hydromorphone HCl (Hydromorphone 0.5 Mg Inj) 0.5 mg IV NOW ONE Stop: 08/04/23 13:15 Last Admin: 08/04/23 13:21 Dose: 0.5 mg Documented By: XUAN Acetaminophen (Ofirmev) 1,000 mg in 100 mls @ 400 mls/hr IV NOW ONE Stop: 08/04/23 12:03 Last Infusion: 08/04/23 13:11 Dose: Infused Documented By: Infusion: 08/04/23 12:46 Dose: 400 mls/hr Documented By: Infusion: 08/04/23 12:11 Dose: 0 mls/hr Documented By: Admin: 08/04/23 12:11 Dose: 400 mls/hr Documented By: BS Sodium Chloride (Normal Saline 0.9%) 1,000 mls @ 1,000 mls/hr IV BOLUS ONE Stop: 08/04/23 12:48 Last Infusion: 08/04/23 14:11 Dose: Infused Documented By: Admin: 08/04/23 12:10 Dose: 1,000 mls/hr Documented By: BS Ondansetron HCl (Ondansetron 4 Mg/2 Ml Inj) 4 mg IV NOW ONE Stop: 08/04/23 11:50 Last Admin: 08/04/23 12:10 Dose: 4 mg Documented By: XUAN Prochlorperazine (Prochlorperazine 10 Mg/2 Ml Vial) 10 mg IV NOW ONE Stop: 08/04/23 13:09 Last Admin: 08/04/23 13:19 Dose: 10 mg Documented By: XUAN Vital Signs Vital signs: Vital Signs - 8 hr 08/04/23 11:21 08/04/23 11:21 08/04/23 11:30 Temperature Pulse Rate 122 H 115 H Respiratory Rate Blood Pressure 152/95 H Pulse Oximetry 99 96 Oxygen Delivery Method 08/04/23 11:31 08/04/23 11:41 08/04/23 11:41 Temperature 98.7 F Pulse Rate 113 H 103 H Respiratory Rate 18 18 Blood Pressure 152/95 H 129/69 Pulse Oximetry 98 98 Oxygen Delivery Method Room Air 08/04/23 12:00 08/04/23 12:00 08/04/23 12:30 Temperature Pulse Rate 109 H Respiratory Rate 19 Blood Pressure 113/73 111/74 Pulse Oximetry 95 Oxygen Delivery Method 08/04/23 12:30 08/04/23 13:00 08/04/23 13:00 Temperature Pulse Rate 92 H 72 Respiratory Rate 15 19 Blood Pressure 137/91 H Pulse Oximetry 98 96 Oxygen Delivery Method 08/04/23 13:19 08/04/23 13:21 08/04/23 13:21 Temperature Pulse Rate 63 68 Respiratory Rate 20 Blood Pressure 115/67 115/67 Pulse Oximetry 98 Oxygen Delivery Method 08/04/23 13:30 08/04/23 13:30 08/04/23 13:40 Temperature Pulse Rate 70 83 Respiratory Rate 15 14 Blood Pressure 114/65 Pulse Oximetry 97 97 Oxygen Delivery Method 08/04/23 13:40 08/04/23 14:00 08/04/23 14:00 Temperature Pulse Rate 74 Respiratory Rate 19 Blood Pressure 120/64 112/85 Pulse Oximetry 98 Oxygen Delivery Method Room Air 08/04/23 14:30 08/04/23 14:31 08/04/23 14:31 Temperature Pulse Rate 94 H 91 H Respiratory Rate 14 23 Blood Pressure 149/105 H Pulse Oximetry 97 98 Oxygen Delivery Method Room Air <Sirena Dennissuzan, DO - Last Filed: 08/04/23 15:15> Orders Ordered: ED Orders 08/04/23 11:38 CBC Auto Diff [Complete Blood Count AUTO DIFF] Stat CMP [Comprehensive Metabolic Panel] Stat Discontinued Medications Dexamethasone (Dexamethasone 10 Mg/Ml Vial) 10 mg IV NOW ONE Stop: 08/04/23 11:50 Last Admin: 08/04/23 12:10 Dose: 10 mg Documented By: BS Dihydroergotamine Mesylate (Dihydroergotamine 1 Mg/Ml Ampul) 1 mg IV NOW ONE Stop: 08/04/23 11:50 Last Admin: 08/04/23 12:11 Dose: 1 mg Documented By: BS Hydromorphone HCl (Hydromorphone 0.5 Mg Inj) 0.5 mg IV NOW ONE Stop: 08/04/23 13:15 Last Admin: 08/04/23 13:21 Dose: 0.5 mg Documented By: XUAN Acetaminophen (Ofirmev) 1,000 mg in 100 mls @ 400 mls/hr IV NOW ONE Stop: 08/04/23 12:03 Last Infusion: 08/04/23 13:11 Dose: Infused Documented By: Infusion: 08/04/23 12:46 Dose: 400 mls/hr Documented By: Infusion: 08/04/23 12:11 Dose: 0 mls/hr Documented By: Admin: 08/04/23 12:11 Dose: 400 mls/hr Documented By: BS Sodium Chloride (Normal Saline 0.9%) 1,000 mls @ 1,000 mls/hr IV BOLUS ONE Stop: 08/04/23 12:48 Last Infusion: 08/04/23 14:11 Dose: Infused Documented By: Admin: 08/04/23 12:10 Dose: 1,000 mls/hr Documented By: XUAN Ondansetron HCl (Ondansetron 4 Mg/2 Ml Inj) 4 mg IV NOW ONE Stop: 08/04/23 11:50 Last Admin: 08/04/23 12:10 Dose: 4 mg Documented By: XUAN Prochlorperazine (Prochlorperazine 10 Mg/2 Ml Vial) 10 mg IV NOW ONE Stop: 08/04/23 13:09 Last Admin: 08/04/23 13:19 Dose: 10 mg Documented By: BS Vital Signs Vital signs: Vital Signs - 8 hr 08/04/23 11:21 08/04/23 11:21 08/04/23 11:30 Temperature Pulse Rate 122 H 115 H Respiratory Rate Blood Pressure 152/95 H Pulse Oximetry 99 96 Oxygen Delivery Method 08/04/23 11:31 08/04/23 11:41 08/04/23 11:41 Temperature 98.7 F Pulse Rate 113 H 103 H Respiratory Rate 18 18 Blood Pressure 152/95 H 129/69 Pulse Oximetry 98 98 Oxygen Delivery Method Room Air 08/04/23 12:00 08/04/23 12:00 08/04/23 12:30 Temperature Pulse Rate 109 H Respiratory Rate 19 Blood Pressure 113/73 111/74 Pulse Oximetry 95 Oxygen Delivery Method 08/04/23 12:30 08/04/23 13:00 08/04/23 13:00 Temperature Pulse Rate 92 H 72 Respiratory Rate 15 19 Blood Pressure 137/91 H Pulse Oximetry 98 96 Oxygen Delivery Method 08/04/23 13:19 08/04/23 13:21 08/04/23 13:21 Temperature Pulse Rate 63 68 Respiratory Rate 20 Blood Pressure 115/67 115/67 Pulse Oximetry 98 Oxygen Delivery Method 08/04/23 13:30 08/04/23 13:30 08/04/23 13:40 Temperature Pulse Rate 70 83 Respiratory Rate 15 14 Blood Pressure 114/65 Pulse Oximetry 97 97 Oxygen Delivery Method 08/04/23 13:40 08/04/23 14:00 08/04/23 14:00 Temperature Pulse Rate 74 Respiratory Rate 19 Blood Pressure 120/64 112/85 Pulse Oximetry 98 Oxygen Delivery Method Room Air 08/04/23 14:30 08/04/23 14:31 08/04/23 14:31 Temperature Pulse Rate 94 H 91 H Respiratory Rate 14 23 Blood Pressure 149/105 H Pulse Oximetry 97 98 Oxygen Delivery Method Room Air MDM - Abdominal Pain <Tristan Yee PA-C - Last Filed: 08/04/23 14:57> Lab Data 08/04/23 11:38 08/04/23 11:38 Labs: Lab Results 08/04/23 Range/Units 11:38 WBC 7.2 (4.5-11.0) X10^3/uL RBC 4.27 (4.0-5.2) X10^6/uL Hgb 13.3 (12.0-16.0) g/dL Hct 38.7 (36-46) % MCV 90.7 (80-100) fL MCH 31.0 (26-34) PG MCHC 34.2 (30-36) % RDW 12.5 (11.6-14.8) % Plt Count 241 (150-400) X10^3/uL Neut % (Auto) 61.1 (50-75) % Lymph % (Auto) 29.5 (25-40) % [place] % (Auto) 6.4 (3-14) % Eos % (Auto) 2.4 (2-4) % Baso % (Auto) 0.6 (0-2) % Neut # (Auto) 4400 (9346-1541) /uL Lymph # (Auto) 2100 (9299-8506) /uL [place] # (Auto) 500 (0-900) /uL Eos # (Auto) 200 (0-450) /uL Baso # (Auto) 0 (0-100) /uL Sodium 140 (137-145) mmol/L Potassium 3.9 (3.4-5.1) mmol/L Chloride 111 H (98-107) mmol/L Carbon Dioxide 25 (22-32) mmol/L BUN 10 (7-17) mg/dL Creatinine 0.78 (0.52-1.04) mg/dL Estimated GFR > 60 (>60) mL/min BUN/Creatinine Ratio 12.8 (6-22) Glucose 93 (70-100) mg/dL Calcium 8.8 (8.4-10.2) mg/dL Total Bilirubin 0.4 (0.2-1.3) mg/dL AST 19 (14-36) IU/L ALT 18 (<35) IU/L Alkaline Phosphatase 50 (38-126) U/L Total Protein 6.8 (6.3-8.2) g/dL Albumin 3.9 (3.5-5.0) g/dL Globulin 2.9 (1.7-4.1) g/dL Albumin/Globulin Ratio 1.3 (1.0-2.8) MDM Narrative Medical decision making narrative: ED course: This is a 28-year-old female presents emergency department due to suspected migraine. Patient presents with multiple auras's including changes in vision as well as some reported numbness. This numbness has been going on for the last week affecting the right side of her face. Patient was given multiple medications to help treat your migraine as noted above and she reports moderate improvement of her symptoms. An LP was also attempted which was unfortunately unsuccessful. Previous imaging showed no abnormalities. We will attempt to Triptan medication to help with the symptoms. Recommended speaking with her neurologist for continued care. CC: Migraine Complicating co-morbidities: History of seizures, asthma, migraines Data collected from: Previous notes Medical records reviewed: Patient was seen here 3 days ago due to a seizure. History of asthma, migraine headaches, seizure disorder. Had 2 episodes of seizure. Has a regular neurologist in [place]. History of cholecystectomy, C- section, tubal ligation. CTA head and neck were ordered which were unremarkable. Her neurologist office was contacted and recommended restarting her gabapentin. Differential considered, but not limited to: Ischemic stroke, hemorrhagic stroke, migraine Exam documented above, pertinent findings include: A small amount of facial drooping was noticed on physical exam of the patient states has been going on for the last week and it is happened in the past due to her migraines. Lab Test results independently reviewed as above. Pertinent findings: CBC and CMP unremarkable. Imaging studies independently reviewed: Previous CT head CTA head and neck were unremarkable. Scores Used: None MIPS Elements: None Consultations: None Treatments: Dilaudid, Compazine, Zofran, the DHE, dexamethasone, Tylenol Re-evaluations: Patient reports feeling better after medications given Discussion: Discussed plan with the patient was comfortable with the plan Diagnosis: Migraine Disposition: see below, along with detailed discharge instructions that have been reviewed with patient as well as indications for ED re-evaluation and additional outpatient follow up Dr. Pagan-I have seen evaluated patient myself. I have seen her a couple days before she left against medical advice. She continues to present to the ED with ongoing headache. She has had 2 CTs this week she denies having fever she has no leukocytosis. She continues to have nausea vomiting. She is intermittently taking medications that are offered to her. She does not want they migraine cocktail again today. She is finally given Dilaudid. Did help some. For completeness sake with ongoing headache and vomiting we discussed lumbar puncture. She was agreeable to at unfortunately was unsuccessful. She really does not have meningeal signs or fever. She was restarted on her gabapentin. At this time I do recommend she follow-up there neurologist in [place] state. <Sirena Latasha, DO - Last Filed: 08/04/23 15:15> Lab Data Labs: Lab Results 08/04/23 Range/Units 11:38 WBC 7.2 (4.5-11.0) X10^3/uL RBC 4.27 (4.0-5.2) X10^6/uL Hgb 13.3 (12.0-16.0) g/dL Hct 38.7 (36-46) % MCV 90.7 (80-100) fL MCH 31.0 (26-34) PG MCHC 34.2 (30-36) % RDW 12.5 (11.6-14.8) % Plt Count 241 (150-400) X10^3/uL Neut % (Auto) 61.1 (50-75) % Lymph % (Auto) 29.5 (25-40) % [place] % (Auto) 6.4 (3-14) % Eos % (Auto) 2.4 (2-4) % Baso % (Auto) 0.6 (0-2) % Neut # (Auto) 4400 (8933-2592) /uL Lymph # (Auto) 2100 (4551-7357) /uL [place] # (Auto) 500 (0-900) /uL Eos # (Auto) 200 (0-450) /uL Baso # (Auto) 0 (0-100) /uL Sodium 140 (137-145) mmol/L Potassium 3.9 (3.4-5.1) mmol/L Chloride 111 H (98-107) mmol/L Carbon Dioxide 25 (22-32) mmol/L BUN 10 (7-17) mg/dL Creatinine 0.78 (0.52-1.04) mg/dL Estimated GFR > 60 (>60) mL/min BUN/Creatinine Ratio 12.8 (6-22) Glucose 93 (70-100) mg/dL Calcium 8.8 (8.4-10.2) mg/dL Total Bilirubin 0.4 (0.2-1.3) mg/dL AST 19 (14-36) IU/L ALT 18 (<35) IU/L Alkaline Phosphatase 50 (38-126) U/L Total Protein 6.8 (6.3-8.2) g/dL Albumin 3.9 (3.5-5.0) g/dL Globulin 2.9 (1.7-4.1) g/dL Albumin/Globulin Ratio 1.3 (1.0-2.8) MDM Narrative Medical decision making narrative: ED course: [ ] CC: [ ] Complicating co-morbidities: [ ] Data collected from: Previous notes Medical records reviewed: Patient was seen here 3 days ago due to a seizure. History of asthma, migraine headaches, seizure disorder. Had 2 episodes of seizure. Has a regular neurologist in [place]. History of cholecystectomy, C- section, tubal ligation. CTA head and neck were ordered which were unremarkable. Her neurologist office was contacted and recommended restarting her gabapentin. Differential considered, but not limited to: [ ] Exam documented above, pertinent findings include: [ ] Lab Test results independently reviewed as above. Pertinent findings: CBC and CMP unremarkable. Imaging studies independently reviewed: [ ] Scores Used: None MIPS Elements: None Consultations: None Treatments: [ ] Re-evaluations: [ ] Discussion: Discussed plan with the patient was comfortable with the plan Diagnosis: [ ] Disposition: see below, along with detailed discharge instructions that have been reviewed with patient as well as indications for ED re-evaluation and additional outpatient follow up Dr. Pagan-I have seen evaluated patient myself. I have seen her a couple days before she left against medical advice. She continues to present to the ED with ongoing headache. She has had 2 CTs this week she denies having fever she has no leukocytosis. She continues to have nausea vomiting. She is intermittently taking medications that are offered to her. She does not want they migraine cocktail again today. She is finally given Dilaudid. Did help some. For completeness sake with ongoing headache and vomiting we discussed lumbar puncture. She was agreeable to at unfortunately was unsuccessful. She really does not have meningeal signs or fever. She was restarted on her gabapentin. At this time I do recommend she follow-up there neurologist in her [place] state. Discharge Plan Departure Patient Disposition: Home Clinical Impression: Migraine Instructions: DI for Migraine Activity Restrictions/Additional Instructions: Thank you for coming to the [facility] Emergency Department today. As we discussed suspect your symptoms are due to the migraines you have had in the past. Your previous imaging was non concerning and there were no significant concerning findings on your exam or lab work today. Please continue taking the medications you have been prescribed for your migraines. You may also try this medication prescribed called sumatriptan which may help with your symptoms. I recommend you speak with your neurologist from [place] for further guidance regarding your seizure medications or any possible migraine medications. Please return to the emergency department if you develop any significant slurred speech, weakness, or any other concerning signs or symptoms. I hope you feel better soon. Please follow up with your primary care provider within a week if your symptoms continue. If you do not have a primary care provider please contact the [facility] Resource line at [phone]. They will ask some questions about your medical history and help you get set up with a provider in the community. Prescriptions: New sumatriptan succinate 50 mg tablet See Rx Instructions .ROUTE .COMPLEX Qty: 10 0RF Rx Instructions: take 1 tab at onset of headache; if no relief may repeat 1 tab after at least 2 hrs; max = 4 tabs/24 hr No Action gabapentin 800 mg tablet 800 mg PO BID Qty: 60 0RF ondansetron 4 mg tablet,disintegrating 4 mg PO QID PRN (Reason: nausea and vomiting) Qty: 10 0RF [id number] [Fioricet] 50-300-40 mg capsule 1 cap PO Q6H PRN (Reason: pain) Qty: 10 0RF Referrals: Miscellaneous,Doctor, MD [Primary Care Provider] - Stand Alone Forms: Patient Portal/API, Work Release Note ED Sign-out <Sirena Pagan, - Last Filed: 08/04/23 15:15> Cosign ED Attending Brian Attestation: I was available for consultation.
[2023-08-04 12:00] LABS: Add Manual Diff / Slide Review NO; Basophils Absolute Auto 0 /uL (0-100); Basophils Percent Auto 0.6 % (0-2); Eosinophils Absolute Auto 200 /uL (0-450); Eosinophils Percent Auto 2.4 % (2-4); Hematocrit 38.7 % (36-46); Hemoglobin 13.3 g/dL (12.0-16.0); Lymphocytes Absolute Auto 2100 /uL (1100-4500); Lymphocytes Percent Auto 29.5 % (25-40); Mean Corpuscular HGB Conc 34.2 % (30-36); Mean Corpuscular Volume 90.7 fL (80-100); Monocytes Absolute Auto 500 /uL (0-900); Monocytes Percent Auto 6.4 % (3-14); Neutrophils Absolute Auto 4400 /uL (1500-7000); Neutrophils Percent Auto 61.1 % (50-75); Platelet Count 241 X10^3/uL (150-400); Red Blood Cell Count 4.27 X10^6/uL (4.0-5.2); Red Cell Distribution Width 12.5 % (11.6-14.8); White Blood Cell Count 7.2 X10^3/uL (4.5-11.0)
[2023-08-04 12:06] LABS: Alanine Aminotransferase 18 IU/L (<35); Albumin 3.9 g/dL (3.5-5.0); Albumin Globulin Ratio 1.3 (1.0-2.8); Alkaline Phosphatase 50 U/L (38-126); Aspartate Aminotransferase 19 IU/L (14-36); BUN Creatinine Ratio 12.8 (6-22); Bilirubin Total 0.4 mg/dL (0.2-1.3); Blood Urea Nitrogen 10 mg/dL (7-17); Calcium 8.8 mg/dL (8.4-10.2); Carbon Dioxide 25 mmol/L (22-32); Chloride 111 mmol/L (98-107); Estimated Glomerular Filt Rate > 60 mL/min (>60); Globulin 2.9 g/dL (1.7-4.1); Glucose 93 mg/dL (70-100); HEMOLYSIS 15 (0-50); Potassium 3.9 mmol/L (3.4-5.1); Sodium 140 mmol/L (137-145); Total Protein 6.8 g/dL (6.3-8.2)
[2023-08-04] MEDS: SODIUM CHLORIDE 0.9% 1,000 ML 1000 ML IV (12:10)
[2023-08-04] MEDS: ONDANSETRON 4 MG/2 ML INJ IV (12:10)
[2023-08-04] MEDS: DEXAMETHASONE 10 MG/ML VIAL IV (12:10)
[2023-08-04] MEDS: ACETAMINOPHEN IV 1,000 MG/100 ML VIAL 400 MG IV (12:11)
[2023-08-04] MEDS: DIHYDROERGOTAMINE 1 MG/ML AMPUL IV (12:11)
[2023-08-04] MEDS: PROCHLORPERAZINE 10 MG/2 ML VIAL IV (13:19)
[2023-08-04] MEDS: HYDROMORPHONE 0.5 MG INJ IV (13:21)
== END 2023-08-04 15:02 | disposition home or self-care (01) ==
PROVIDERS: Emergency Provider Physician Assistant Medical
DX: G43.909 Migraine, unspecified, not intractable, without status migrainosus (principal); H53.9 Unspecified visual disturbance
CPT/HCPCS: 36415; 62270; 80053; 85025; 96365; 96375; 99284; J0136; J0780; J1100; J1110; J1170; J2405

== ENCOUNTER 2023-08-09 11:27 | Emergency (ER) | payer OTHER, SELFPAY ==
[2023-08-09 11:31] VITALS: BP 164/114; PULSE 113; RESP 22; O2SAT 98; BMI 38.7
--- NOTE | 2023-08-09 11:35 | ED_ITS ---
HPI - Headache <Tristan Yee PA-C - Last Filed: 08/09/23 13:06> General Chief Complaint: Headache Stated Complaint: head ache, migraine Time Seen by Provider: 08/09/23 11:35 Mode of arrival: Ambulatory History of Present Illness HPI Narrative: This is a 28-year-old female presents emergency department due to continued migraine symptoms for the last week. She reports she was extensive history of these with a history of seizures. Denies any seizure-like activity. Does state that with the migraines she does get some right upper extremity weakness. She was being seen by a neurologist in [place] for this. She was going back to [place] tomorrow to see her neurologist. She reports that her symptoms mildly improved after her last ED visit but they have returned. She was taken the sumatriptan that was prescribed. Patient was been here 4 times in the last week and workup has included a CTA head and neck and a CT head without contrast. Reports some nausea and vomiting as well. Related Data Previous Rx's Medication Instructions Recorded iwxroayyjd-hbhmxyvqeurrv-pzcrbetf 1 cap PO Q6H PRN pain #10 caps 08/01/23 50 mg-300 mg-40 mg capsule (Fioricet) gabapentin 800 mg tablet 800 mg PO BID #60 tabs 08/01/23 ondansetron 4 mg disintegrating 4 mg PO QID PRN nausea and 08/01/23 tablet vomiting #10 tabs sumatriptan succinate 50 mg tablet See Rx Instructions PO .COMPLEX 08/04/23 #10 tabs Allergies Allergy/AdvReac Type Severity Reaction Status Date / Time latex AdvReac Hives Verified 08/04/23 11:31 Review of Systems <Tristan Yee PA-C - Last Filed: 08/09/23 13:06> Review of Systems Narrative: GENERAL: Denies chills, fatigue, malaise, fever, sweats. HEENT: Reports headache, Denies sinus pain, ear pain, sore throat, difficulty swallowing, dizziness. RESPIRATORY: Denies dyspnea, cough, wheezing, hemoptysis, sputum. CARDIOVASCULAR: Denies chest pain, palpitations, orthopnea, edema, GASTROINTESTINAL: Reports nausea and vomiting Denies abdominal pain, diarrhea, constipation, melena. : Denies dysuria, frequency, incontinence, hematuria, urinary retention. MUSCULOSKELETAL: denies weakness, joint pain, or bony pain SKIN: Denies rash, skin lesions, or other NEUROLOGIC: Denies weakness, headache, numbness, change in speech, confusion, seizures, incoordination. PSYCHIATRIC: No concerning psychosocial issues. 12 point review of systems is negative except for those stated above Patient History <Tristan Yee PA-C - Last Filed: 08/09/23 13:06> Social History Smoking Status: Current every day smoker Smoking Status: Current every day smoker tobacco type: vaping alcohol intake frequency: other Substance Use Type: does not use Exam <Tristan Yee PA-C - Last Filed: 08/09/23 13:06> Narrative Exam Narrative: GENERAL: Well-developed patient, in mild distress. HEAD: Atraumatic. Normocephalic. EYES: Pupils equal round and reactive. Extraocular motions intact. No scleral icterus. No injection or drainage. ENT: Nose without bleeding, purulent drainage. Throat without erythema, tonsillar hypertrophy or exudate. Airway patent. NECK: Trachea midline. Non tender EXTREMITIES: No edema or joint tenderness. NEURO: AOx3. Some slight facial drooping of the right side as well as slightly decreased right arm shoulder flexion, although the patient states that this happens routinely during her chronically migraines SKIN: No rash or erythema of visible areas Initial Vital Signs Initial Vital Signs: Vital Signs Pulse Rate 113 H 08/09/23 11:31 Respiratory Rate 22 08/09/23 11:31 Blood Pressure 164/114 H 08/09/23 11:31 Pulse Oximetry 98 08/09/23 11:31 Oxygen Delivery Method Room Air 08/09/23 11:31 <Jessica Calderon MD - Last Filed: 08/09/23 18:14> Initial Vital Signs Initial Vital Signs: Vital Signs Pulse Rate 113 H 08/09/23 11:31 Respiratory Rate 08/09/23 11:31 Blood Pressure 164/114 H 08/09/23 11:31 Pulse Oximetry 98 08/09/23 11:31 Oxygen Delivery Method Room Air 08/09/23 11:31 Course <Tristan Yee PA-C - Last Filed: 08/09/23 13:06> Orders Ordered: ED Orders 08/09/23 11:49 CT head/brain wo con Stat Discontinued Medications Dexamethasone (Dexamethasone 10 Mg/Ml Vial) 10 mg IV NOW ONE Stop: 08/09/23 11:49 Last Admin: 08/09/23 12:21 Dose: Not Given Documented By: TRACY Dihydroergotamine Mesylate (Dihydroergotamine 1 Mg/Ml Ampul) 1 mg IV NOW ONE Stop: 08/09/23 12:14 Last Admin: 08/09/23 12:22 Dose: Not Given Documented By: TRACY Diphenhydramine HCl (Diphenhydramine 50 Mg/Ml Vial) 25 mg IV NOW ONE Stop: 08/09/23 11:49 Last Admin: 08/09/23 12:08 Dose: 25 mg Documented By: TRACY Hydromorphone HCl (Hydromorphone 0.5 Mg Inj) 0.5 mg IV NOW ONE Stop: 08/09/23 12:14 Last Admin: 08/09/23 12:22 Dose: Not Given Documented By: TRACY Sodium Chloride (Normal Saline 0.9%) 1,000 mls @ 1,000 mls/hr IV BOLUS ONE Stop: 08/09/23 12:47 Last Infusion: 08/09/23 12:23 Dose: Infused Documented By: Admin: 08/09/23 12:05 Dose: 1,000 mls/hr Documented By: TRACY Acetaminophen (Ofirmev) 1,000 mg in 100 mls @ 400 mls/hr IV NOW ONE Stop: 08/09/23 12:02 Last Infusion: 08/09/23 12:22 Dose: Infused Documented By: Infusion: 08/09/23 12:13 Dose: 0 mls/hr Documented By: Admin: 08/09/23 12:05 Dose: 400 mls/hr Documented By: TRACY Ketorolac Tromethamine (Ketorolac 30 Mg/Ml Vial) 30 mg IV NOW ONE Stop: 08/09/23 11:49 Last Admin: 08/09/23 12:22 Dose: Not Given Documented By: TRACY Prochlorperazine (Prochlorperazine 10 Mg/2 Ml Vial) 10 mg IV NOW ONE Stop: 08/09/23 11:49 Last Admin: 08/09/23 12:22 Dose: Not Given Documented By: TRACY Vital Signs Vital signs: Vital Signs - 8 hr 08/09/23 11:31 08/09/23 12:23 Pulse Rate 113 H 98 H Respiratory Rate 22 14 Blood Pressure 164/114 H 115/72 Pulse Oximetry 98 98 Oxygen Delivery Method Room Air Room Air <Jessica Calderon MD - Last Filed: 08/09/23 18:14> Orders Ordered: ED Orders 08/09/23 11:49 CT head/brain wo con Stat Discontinued Medications Dexamethasone (Dexamethasone 10 Mg/Ml Vial) 10 mg IV NOW ONE Stop: 08/09/23 11:49 Last Admin: 08/09/23 12:21 Dose: Not Given Documented By: TRACY Dihydroergotamine Mesylate (Dihydroergotamine 1 Mg/Ml Ampul) 1 mg IV NOW ONE Stop: 08/09/23 12:14 Last Admin: 08/09/23 12:22 Dose: Not Given Documented By: TRACY Diphenhydramine HCl (Diphenhydramine 50 Mg/Ml Vial) 25 mg IV NOW ONE Stop: 08/09/23 11:49 Last Admin: 08/09/23 12:08 Dose: 25 mg Documented By: TRACY Hydromorphone HCl (Hydromorphone 0.5 Mg Inj) 0.5 mg IV NOW ONE Stop: 08/09/23 12:14 Last Admin: 08/09/23 12:22 Dose: Not Given Documented By: TRACY Sodium Chloride (Normal Saline 0.9%) 1,000 mls @ 1,000 mls/hr IV BOLUS ONE Stop: 08/09/23 12:47 Last Infusion: 08/09/23 12:23 Dose: Infused Documented By: Admin: 08/09/23 12:05 Dose: 1,000 mls/hr Documented By: TRACY Acetaminophen (Ofirmev) 1,000 mg in 100 mls @ 400 mls/hr IV NOW ONE Stop: 08/09/23 12:02 Last Infusion: 08/09/23 12:22 Dose: Infused Documented By: Infusion: 08/09/23 12:13 Dose: 0 mls/hr Documented By: Admin: 08/09/23 12:05 Dose: 400 mls/hr Documented By: TRACY Ketorolac Tromethamine (Ketorolac 30 Mg/Ml Vial) 30 mg IV NOW ONE Stop: 08/09/23 11:49 Last Admin: 08/09/23 12:22 Dose: Not Given Documented By: TRACY Prochlorperazine (Prochlorperazine 10 Mg/2 Ml Vial) 10 mg IV NOW ONE Stop: 08/09/23 11:49 Last Admin: 08/09/23 12:22 Dose: Not Given Documented By: TRACY Vital Signs Vital signs: Vital Signs - 8 hr 08/09/23 11:31 08/09/23 12:23 Pulse Rate 113 H 98 H Respiratory Rate 22 14 Blood Pressure 164/114 H 115/72 Pulse Oximetry 98 98 Oxygen Delivery Method Room Air Room Air MDM - Headache <Tristan Yee PA-C - Last Filed: 08/09/23 13:06> Imaging Data CT scan - head: Radiologist's Impression: [address] [address] [address] Scan Report Signed Patient: OSMEL RAMSEY MR#: [id number] : 1995 Acct:[id number] Age/Sex: 28 / F Date of Service: 08/09/23 Loc: ED Accession Number: [id number] Procedure: CT head/brain wo con Ordering Provider: Tristan Yee P.A-C PROCEDURE: CT HEAD/BRAIN WO CON INDICATIONS: Severe headache TECHNIQUE: Noncontrast 4.5 mm thick angled axial sections acquired from the foramen magnum to the vertex, with coronal and sagittal reformats. For radiation dose reduction, the following was used: automated exposure control, adjustment of mA and/or kV according to patient size. COMPARISON: [facility], MR, MR BRAIN WITHOUT CONTRAST, 07/31/2023, 12:53. [facility], CT, CT HEAD WITHOUT CONTRAST, 07/31/2023, 12:29. [facility], CT, CT HEAD/BRAIN WO CON, 07/31/2023, 19:02. FINDINGS: Image quality: Diagnostic. CSF spaces: Basal cisterns are patent. No extra-axial fluid collections. Ventricles are normal in size and shape. Brain: No midline shift. No intracranial masses or hemorrhage. Mendez-white matter interface is normal. Skull and face: Calvarium and visualized facial bones are intact, without suspicious lesions. Sinuses: Visualized sinuses and mastoids are clear. IMPRESSION: No acute intracranial pathology. No significant changes from recent studies. Dictated by: Franc Porras M.D. on 08/09/2023 at 12:40 Approved by: Franc Porras M.D. on 08/09/2023 at 12:41 [facility] Narrative Medical decision making narrative: ED course: This is a 28-year-old female presenting to the emergency department due to continued migraine symptoms. [employer] through her workup and treatment patient was elected to leave against medical advice. Risks and benefits discussed. Over the last week patient has been here 4 times where she was received a noncontrast CT as well as a CTA head and neck which were unremarkable. She was flying back home to [place] tomorrow to be seen by her neurologist for more continued care and workup. CT head eventually came back which was unremarkable. CC: Migraine Complicating co-morbidities: History of migraines and seizures Data collected from: Previous notes Medical records reviewed: Patient was seen here 5 days ago due to migraine symptoms. Has a history of migraines. Reports her face occasionally going numb with some numbness to her right upper extremities wishes happened in the past. Received a CTA 8 days ago which was unremarkable. History of seizures in his seen by a neurologist in [place]. Reports a history of ?colored dots? affecting her vision. Lab work was unremarkable. Patient was given multiple migraine medications some relief. An LP was attempted but unfortunately unsuccessful. Also had a noncontrast CT which was unremarkable. She was given Dilaudid which helped with the pain. No meningeal signs or fevers. Differential considered, but not limited to: Ischemic stroke, subarachnoid hemorrhage, migraine Exam documented above, pertinent findings include: Some right upper extremity or any weakness noted although the patient states that this routinely happens during her migraines Lab Test results independently reviewed as above. Pertinent findings: None obtained Imaging studies independently reviewed: CT read was pending while patient elected to leave against medical advice. Eventually CT head result came back with no abnormalities. Scores Used: None MIPS Elements: None Consultations: None Treatments: Patient did not receive a complete course of treatment and she elected to leave against medical advice Re-evaluations: None Discussion: Discussed plan with the patient was comfortable with the plan Diagnosis: Migraine Disposition: see below, along with detailed discharge instructions that have been reviewed with patient as well as indications for ED re-evaluation and additional outpatient follow up Discharge Plan Departure Patient Disposition: Left Against Medical Advice Clinical Impression: Migraine Prescriptions: No Action gabapentin 800 mg tablet 800 mg PO BID Qty: 60 0RF ondansetron 4 mg tablet,disintegrating 4 mg PO QID PRN (Reason: nausea and vomiting) Qty: 10 0RF tovlcybpii-rwdrzfvxvfead-cwel [Fioricet] 50-300-40 mg capsule 1 cap PO Q6H PRN (Reason: pain) Qty: 10 0RF sumatriptan succinate 50 mg tablet See Rx Instructions .ROUTE .COMPLEX Qty: 10 0RF Rx Instructions: take 1 tab at onset of headache; if no relief may repeat 1 tab after at least 2 hrs; max = 4 tabs/24 hr Referrals: Miscellaneous,Doctor, [Primary Care Provider] - Stand Alone Forms: Patient Portal/API, Against Medical Advice ED Sign-out <Jessica Calderon MD - Last Filed: 08/09/23 18:14> Cosign ED Attending Cosignature Attestation: I was immediately available in the department for consultation throughout this patient's visit. Jessica Calderon MD
--- NOTE | 2023-08-09 11:49 | DI.CT.S_ITS ---
PROCEDURE: CT HEAD/BRAIN WO CON INDICATIONS: Severe headache TECHNIQUE: Noncontrast 4.5 mm thick angled axial sections acquired from the foramen magnum to the vertex, with coronal and sagittal reformats. For radiation dose reduction, the following was used: automated exposure control, adjustment of mA and/or kV according to patient size. COMPARISON: [facility], MR, MR BRAIN WITHOUT CONTRAST, 07/31/2023, 12:53. [facility], CT, CT HEAD WITHOUT CONTRAST, 07/31/2023, 12:29. [facility], CT, CT HEAD/BRAIN WO CON, 07/31/2023, 19:02. FINDINGS: Image quality: Diagnostic. CSF spaces: Basal cisterns are patent. No extra-axial fluid collections. Ventricles are normal in size and shape. Brain: No midline shift. No intracranial masses or hemorrhage. Mendez-white matter interface is normal. Skull and face: Calvarium and visualized facial bones are intact, without suspicious lesions. Sinuses: Visualized sinuses and mastoids are clear. IMPRESSION: No acute intracranial pathology. No significant changes from recent studies. Dictated by: Franc Porras M.D. on 08/09/2023 at 12:40 Approved by: Franc Porras M.D. on 08/09/2023 at 12:41
[2023-08-09] MEDS: ACETAMINOPHEN IV 1,000 MG/100 ML VIAL 400 MG IV (12:05)
[2023-08-09] MEDS: SODIUM CHLORIDE 0.9% 1,000 ML 1000 ML IV (12:05)
[2023-08-09] MEDS: diphenhydrAMINE 50 MG/ML VIAL 25 MG IV (12:08)
--- NOTE | 2023-08-09 12:13 | PC.NURSE ---
patient stated that she does not want the same meds that she got last time. She stated that she does not want IV tylenol. Iv Tylenol stopped. She is agreeable to receive 0.9 normal saline. The patient states that she doesn't want the compazine, toradol, or dexamethazone. She stated that she doesnt want any of that. Provider and charge aware.
--- NOTE | 2023-08-09 12:21 | PC.NURSE ---
patient decided to leave AMA. Provider and charge aware.
[2023-08-09 12:23] VITALS: BP 115/72; PULSE 98; RESP 14; O2SAT 98
== END 2023-08-09 12:25 | disposition left against medical advice (07) ==
PROVIDERS: Emergency Provider Physician Assistant Medical
DX: G43.909 Migraine, unspecified, not intractable, without status migrainosus (principal); R11.2 Nausea with vomiting, unspecified
CPT/HCPCS: 70450; 96374; 96375; 99284; J0136; J1200

== ENCOUNTER 2023-08-19 08:16 | Emergency (ER) | payer OTHER, SELFPAY ==
[2023-08-19 08:21] VITALS: BP 146/110; PULSE 111; RESP 18; TEMP 36.4; O2SAT 97; BMI 38.7
--- NOTE | 2023-08-19 08:35 | PC.NURSE ---
pt c/o right under arm pain and abscess. Pt has hx of cystic acne and muliple i&d with wound packing related to acne. Pt states that her pain is 7/10 that she describes as a throbbing pressure. Right under arm tender to palpation. A&Ox4. Denies fever & n/v
--- NOTE | 2023-08-19 08:52 | ED.SKABFB ---
HPI - Skin/Abscess/Foreign Bdy General Chief complaint: Skin/Abscess/Foreign Body Stated complaint: Cyst under R/arm Time Seen by Provider: 08/19/23 08:28 Source: patient Mode of arrival: Ambulatory Limitations: no limitations History of Present Illness HPI narrative: Patient 28-year-old female history of migraines endometriosis ongoing abscesses presents today with right axilla manage. She reports that they tried to remove her sweat glands she now feels like she is having some drainage from her arm that has been ongoing for maybe about a month. No fevers chills or other symptoms. She is visiting from out of town she has been to the ED multiple times for migraine headaches. She says that that has completely resolved she thinks it was related to probably some endometriosis. She is here until August 28 and then she is to go back home and see her doctors. She has no swelling or redness under her arm she is only having drainage Related Data Previous Rx's Medication Instructions Recorded gerrugcbpx-omypkolvwhxwx-cuifynol 1 cap PO Q6H PRN pain #10 caps 08/01/23 50 mg-300 mg-40 mg capsule (Fioricet) gabapentin 800 mg tablet 800 mg PO BID #60 tabs 08/01/23 ondansetron 4 mg disintegrating 4 mg PO QID PRN nausea and 08/01/23 tablet vomiting #10 tabs sumatriptan succinate 50 mg tablet See Rx Instructions PO .COMPLEX 08/04/23 #10 tabs celecoxib 200 mg capsule 200 mg PO DAILY PRN pain #30 caps 08/19/23 celecoxib 200 mg capsule (Celebrex) 200 mg PO DAILY PRN pain #30 caps 08/19/23 doxycycline hyclate 100 mg capsule 100 mg PO BID #14 caps 08/19/23 doxycycline hyclate 100 mg capsule 100 mg PO BID #14 caps 08/19/23 gabapentin 800 mg tablet 800 mg PO BID #60 tabs 08/19/23 gabapentin 800 mg tablet 800 mg PO BID #60 tabs 08/19/23 hydrocodone 5 mg-acetaminophen 325 1 tab PO Q6H PRN pain #10 tabs 08/19/23 mg tablet hydrocodone 5 mg-acetaminophen 325 1 tab PO Q6H PRN pain #10 tabs 08/19/23 mg tablet Allergies Allergy/AdvReac Type Severity Reaction Status Date / Time latex AdvReac Hives Verified 08/19/23 08:25 Patient History Social History Smoking Status: Current every day smoker Smoking Status: Current every day smoker tobacco type: vaping alcohol intake frequency: other Substance Use Type: does not use Exam Initial Vital Signs Initial Vital Signs: Vital Signs Temperature 97.6 F 08/19/23 08:21 Pulse Rate 111 H 08/19/23 08:21 Respiratory Rate 18 08/19/23 08:21 Blood Pressure 146/110 H 08/19/23 08:21 Pulse Oximetry 97 08/19/23 08:21 Oxygen Delivery Method Room Air 08/19/23 08:21 GENERAL: Well-appearing, well-nourished and in no acute distress. CARDIOVASCULAR: peripheral pulses in tact, cap refill <2 sec RESPIRATORY: No respiratory distress, speaks in full sentences without difficulty EXTREMITIES: Normal range of motion, no clubbing or edema. Neurovascularly intact NEUROLOGICAL: Cranial nerves II through XII grossly intact. Normal gait and speech. SKIN: Right axilla drainage no fluctuation no erythema no induration small area where there is purulent drainage but nontender today Course Vital Signs Vital signs: Vital Signs - 8 hr 08/19/23 08:21 Temperature 97.6 F Pulse Rate 111 H Respiratory Rate 18 Blood Pressure 146/110 H Pulse Oximetry 97 Oxygen Delivery Method Room Air MDM - Skin/Abscess/Foreign Bdy MDM Narrative Medical decision making narrative: Patient well-appearing 28-year-old female presents today with right axilla draining. There is no obvious abscess or area to I&D. She has some obvious purulent drainage but overall not septic. Recommend warm compresses will put her on antibiotics. She wants refills of her medications and then she is to go home in about 10 days. Asking for refill of all her medication. She also wants a couple pain pills which she typically gets an I have confirmed for endometriosis. She is plans to follow-up with PCP. Discharge Plan Departure Patient Disposition: Home Clinical Impression: Sebaceous cyst of right axilla Instructions: DI for Skin Abscess Activity Restrictions/Additional Instructions: *You have been diagnosed with right armpit said *What to do: At this time you can do warm compresses. There is nothing for me to drain. Will start you on antibiotics to see if it helps. *Continue to take medications as directed Doxycycline 100 mg twice a day for 7 days Celebrex 200 mg daily as needed for pain Gabapentin 800 mg twice a day Clever 1 tablet every 6 hours only if needed for severe *Follow up with your primary care provider in 2-3 days or call [phone] Call your primary care physician as soon as you get home to schedule an appointment *Return to ER if you should have any new, worsening or concerning symptoms CONTROLLED SUBSTANCE DISCHARGE (Narcotoic/benzodiazepine/Flexeril/Phenergan) 1. You have been prescribed narcotic medications, it does have acetaminophen/Tylenol/paracetamol in it, DO NOT TAKE MORE THAN 4,00mg in 24 hours of Tylenol. TRAMADOL DOES NOT CONTAIN TYLENOL 2. Please understand that we cannot provide further refills of narcotics, benzodiazepines or controlled substances through the ED and her pain management will need to be through your provider. 3. While on these medications you cannot drive or operate heavy machinery. 4. You cannot sign legal documents or perform any duties such as this. 5. As long as you're taking opiate pain medications he should also be taking a stool softener such as Colace, Dulcolax, MiraLAX or prune juice, to help avoid constipation. Prescriptions: New doxycycline hyclate 100 mg capsule 100 mg PO BID Qty: 14 0RF gabapentin 800 mg tablet 800 mg PO BID Qty: 60 0RF celecoxib 200 mg capsule 200 mg PO DAILY PRN (Reason: pain) Qty: 30 0RF hydrocodone-acetaminophen 5-325 mg tablet 1 tab PO Q6H PRN (Reason: pain) Qty: 10 0RF doxycycline hyclate 100 mg capsule 100 mg PO BID Qty: 14 0RF gabapentin 800 mg tablet 800 mg PO BID Qty: 60 0RF celecoxib [Celebrex] 200 mg capsule 200 mg PO DAILY PRN (Reason: pain) Qty: 30 0RF hydrocodone-acetaminophen 5-325 mg tablet 1 tab PO Q6H PRN (Reason: pain) Qty: 10 0RF No Action gabapentin 800 mg tablet 800 mg PO BID Qty: 60 0RF ondansetron 4 mg tablet,disintegrating 4 mg PO QID PRN (Reason: nausea and vomiting) Qty: 10 0RF xwlalxyowo-gmpsraoduzmbn-kgpn [Fioricet] 50-300-40 mg capsule 1 cap PO Q6H PRN (Reason: pain) Qty: 10 0RF sumatriptan succinate 50 mg tablet See Rx Instructions .ROUTE .COMPLEX Qty: 10 0RF Rx Instructions: take 1 tab at onset of headache; if no relief may repeat 1 tab after at least 2 hrs; max = 4 tabs/24 hr Referrals: Miscellaneous,Doctor, MD [Primary Care Provider] - Stand Alone Forms: Patient Portal/API
--- NOTE | 2023-08-19 18:20 | PC.NURSE ---
Pt called requesting prescriptions be transferred to another pharmacy. Initially sent to [facility], pt requested transfer to [facility] which occurred, now asking for 3rd transfer to [facility] due to cost. Pt told that we were unable to complete another transfer as provider is gone for the day and pharmacies are closed. 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
--- NOTE | 2023-08-20 09:35 | PC.NURSE ---
non narcartic prescriptions called into [facility] per pt request. Dr. Pagan declined to proceed with narcotic prescription and asked me to cancel norco script at [facility] and [facility] which I completed.
== END 2023-08-19 09:04 | disposition home or self-care (01) ==
PROVIDERS: Emergency Provider Emergency Medicine
DX: L72.3 Sebaceous cyst (principal)
CPT/HCPCS: 99281

== ENCOUNTER 2023-08-21 16:45 | Emergency (ER) | payer OTHER, SELFPAY ==
[2023-08-21 16:50] VITALS: BP 134/101; PULSE 118; RESP 14; TEMP 36.6; O2SAT 99; BMI 39.6
--- NOTE | 2023-08-21 17:29 | ED_ITS ---
HPI - Abdominal Pain <Renata Herrera PA-C - Last Filed: 08/21/23 21:12> General Chief Complaint: Abdominal Pain Stated Complaint: Heart pounding out of my chest Time Seen by Provider: 08/21/23 17:28 Source: patient Mode of arrival: Ambulatory History of Present Illness HPI narrative: 28-year-old woman with a history of endometriosis, sebaceous cyst, frequent ER visits presents with concern for abdominal pain/endometriosis flare--patient also states she feels like her heart is racing/she is anxious date she has been up all night due to her abdominal pain. Patient states that she has had a uterine ablation and treatment for endometriosis and is scheduled to have her uterus removed back home with her physician in [place] on September 08. She states that her endometriosis flares frequently and causes severe pains and cramping and that her current pain which has been going on since last night is consistent with this. She states that she had to call out of work today because of the pain and the medication she received when she was in the ER 4 days ago (hydrocodone) as well as taking 800 mg Ibuprofens 3 times since midnight was not helping with her pain. She has also tried heating pads/hot water bottle with limited relief. She denies any urinary symptoms states that she does not currently have menstrual periods due to her uterine ablation. She states that her provider in [place] usually ?gave me 10 pills or so when this happened I do not know what they were called but they worked better than the hydrocodone?. Patient denies any new or different symptoms compared to her baseline endomet riosis flare symptoms, including fevers, chills, diarrhea, constipation, nausea, vomiting, vaginal bleeding or discharge, dysuria, chest pain, shortness of breath or any other symptoms. Related Data Previous Rx's Medication Instructions Recorded ooqjxvhnvw-ntcmkkmfuhmvw-ingcdkbi 1 cap PO Q6H PRN pain #10 caps 08/01/23 50 mg-300 mg-40 mg capsule (Fioricet) gabapentin 800 mg tablet 800 mg PO BID #60 tabs 08/01/23 ondansetron 4 mg disintegrating 4 mg PO QID PRN nausea and 08/01/23 tablet vomiting #10 tabs sumatriptan succinate 50 mg tablet See Rx Instructions PO .COMPLEX 08/04/23 #10 tabs celecoxib 200 mg capsule 200 mg PO DAILY PRN pain #30 caps 08/19/23 celecoxib 200 mg capsule (Celebrex) 200 mg PO DAILY PRN pain #30 caps 08/19/23 doxycycline hyclate 100 mg capsule 100 mg PO BID #14 caps 08/19/23 doxycycline hyclate 100 mg capsule 100 mg PO BID #14 caps 08/19/23 gabapentin 800 mg tablet 800 mg PO BID #60 tabs 08/19/23 gabapentin 800 mg tablet 800 mg PO BID #60 tabs 08/19/23 hydrocodone 5 mg-acetaminophen 325 1 tab PO Q6H PRN pain #10 tabs 08/19/23 mg tablet hydrocodone 5 mg-acetaminophen 325 1 tab PO Q6H PRN pain #10 tabs 08/19/23 mg tablet celecoxib 200 mg capsule (Celebrex) 200 mg PO DAILY PRN pain #20 caps 08/20/23 doxycycline hyclate 100 mg capsule 100 mg PO BID #14 caps 08/20/23 gabapentin 800 mg tablet 800 mg PO BID #30 tabs 08/20/23 hydrocodone 5 mg-acetaminophen 325 1 tab PO Q6H PRN pain #6 tabs 08/20/23 mg tablet Allergies Allergy/AdvReac Type Severity Reaction Status Date / Time latex AdvReac Hives Verified 08/19/23 08:25 Review of Systems <Renata Herrera PA-C - Last Filed: 08/21/23 21:12> Review of Systems Narrative: See HPI Patient History <Renata Herrera PA-C - Last Filed: 08/21/23 21:12> Social History Smoking Status: Current every day smoker Smoking Status: Current every day smoker tobacco type: vaping alcohol intake frequency: other Substance Use Type: does not use Exam <Renata Herrera PA-C - Last Filed: 08/21/23 21:12> Narrative Exam Narrative: GENERAL: [28] year old patient appears stated age. Obese, Well-developed patient, in mild distress. HEAD: Atraumatic. Normocephalic. EYES: Pupils equal round and reactive. Extraocular motions intact. No scleral icterus. No injection or drainage. ENT: Nose without bleeding, purulent drainage. Airway patent. NECK: Trachea midline. Non tender CARDIOVASCULAR: Regular rate and rhythm without murmurs, gallops, or rubs. RESPIRATORY: Clear to auscultation. Breath sounds equal bilaterally. No wheezes, rales, or rhonchi. GASTROINTESTINAL: Abdomen soft, protuberant, tender in the suprapubic region, otherwise non-tender, nondistended, no McBurney's point tenderness negative Rovsing sign, no CVA tenderness. EXTREMITIES: No edema or joint tenderness. BACK: Nontender without deformity or crepitance. No flank tenderness. NEURO: AOx3. SKIN: No rash or erythema of visible areas Initial Vital Signs Initial Vital Signs: Vital Signs Temperature 97.8 F 08/21/23 16:50 Pulse Rate 118 H 08/21/23 16:50 Respiratory Rate 14 08/21/23 16:50 Blood Pressure 134/101 H 08/21/23 16:50 Pulse Oximetry 99 08/21/23 16:50 Oxygen Delivery Method Room Air 08/21/23 16:50 <DO Jeremiah Cross Last Filed: 08/23/23 09:15> Initial Vital Signs Initial Vital Signs: Vital Signs Temperature 97.8 F 08/21/23 16:50 Pulse Rate 118 H 08/21/23 16:50 Respiratory Rate 14 08/21/23 16:50 Blood Pressure 134/101 H 08/21/23 16:50 Pulse Oximetry 99 08/21/23 16:50 Oxygen Delivery Method Room Air 08/21/23 16:50 Course <Renata Herrera PA-C - Last Filed: 08/21/23 21:12> Orders Ordered: ED Orders 08/21/23 16:54 EKG-12 Lead Stat Vital Signs Vital signs: Vital Signs - 8 hr 08/21/23 16:50 08/21/23 18:40 Temperature 97.8 F 99.2 F Pulse Rate 118 H 109 H Respiratory Rate 14 16 Blood Pressure 134/101 H 132/83 Pulse Oximetry 99 99 Oxygen Delivery Method Room Air Room Air <DO Jeremiah Cross Last Filed: 08/23/23 09:15> Orders Ordered: ED Orders 08/21/23 16:54 EKG-12 Lead Stat Vital Signs Vital signs: Vital Signs - 8 hr 08/21/23 16:50 08/21/23 18:40 Temperature 97.8 F 99.2 F Pulse Rate 118 H 109 H Respiratory Rate 14 16 Blood Pressure 134/101 H 132/83 Pulse Oximetry 99 99 Oxygen Delivery Method Room Air Room Air MDM - Abdominal Pain <Renata Herrera PA-C - Last Filed: 08/21/23 21:12> Differential Diagnosis Differential diagnosis: Likely abdominal pain and endometriosis Medical Records Attestation: I reviewed the patient's medical records. Lab Data Attestation: I reviewed the patient's lab results. Point of care testing: Urine Dip Bedside Urine Glucose Negative Bedside Urine Bilirubin - Negative Bedside Urine Ketone - Negative Urine Specific [place] 1.020 Bedside Urine Occult Blood - Negative Bedside Urine pH 6 Bedside Urine Protein - Negative Bedside Urine Urobilinogen - Negative Bedside Urine Nitrite - Negative Bedside Urine Leukocytes - Negative Esterase ECG Data Attestation: I personally reviewed and interpreted this ECG as follows: Interpretation: Sinus tachycardia, heart rate 113, T-wave inversions lead III and V1; QTC 449 milliseconds, no ST elevation or ectopy MDM Narrative Medical decision making narrative: This is a 28-year-old overweight woman with frequent ER visits and history of endometriosis presenting with concern for endometriosis flare since last night. Per patient her symptoms are consistent with this, she has had no fevers or other symptoms that would suggest appendicitis or other acute intra- abdominal/pelvic process. Labs and imaging are not obtained with the exception of urine dip which is unremarkable. Patient does have some suprapubic tenderness on exam and appears to be fairly uncomfortable, she is tachycardic and endorsing that she feels anxious and uncomfortable tired from being up all night trying to deal with her pain. Patient is scheduled to have a hysterectomy September 08 [facility] in [place] where she is from, Though she is currently working here in [facility]. Has previously had uterine ablation and denies periods or any chance of . 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 Also hoping for something that will be more effective to treat her pain as the hydrocodone that she received a few days ago from this ER has not been helpful. Patient does have history of endometriosis and reasonable to treat her pain, do provider with a work note and a very short course of oxycodone. She was advised not to take these unless the hydrocodone is not helpful and not to take them simultaneously. She reports having for hydrocodone pills leftover however did not confirm this visually did note that the recent provider visit had an addendum stating that patient requested a pharmacy changed 3 times--which necessitated calls to pharmacies to cancel the prescription. Advise the patient that this will not be possible as I am leaving shift and this is a controlled substance prescription, she confirms agreement for [facility] and a [facility] and is in understanding, states that she made this request only because the cost of the medication was more affordable at the other locations last time. Patient is advised regarding return precautions, follow-up plan discussed, all questions answered. <Sirena Pagan, DO - Last Filed: 08/23/23 09:15> Lab Data Point of care testing: Urine Dip Bedside Urine Glucose Negative Bedside Urine Bilirubin - Negative Bedside Urine Ketone - Negative Urine Specific [place] 1.020 Bedside Urine Occult Blood - Negative Bedside Urine pH 6 Bedside Urine Protein - Negative Bedside Urine Urobilinogen - Negative Bedside Urine Nitrite - Negative Bedside Urine Leukocytes - Negative Esterase Discharge Plan Departure Patient Disposition: Home Clinical Impression: Endometriosis, Tachycardia, Anxiety Activity Restrictions/Additional Instructions: *You have been diagnosed with [endometriosis pain, tachycardia, possibly anxiety] *What to do: *Please continue to take your regular medications as directed. [1 ] New medication prescriptions sent to your pharmacy: [oxycodone ] [ ] New medication written as a paper prescription [ ] No new medications given *Please follow up with your primary care provider in 2-3 days, call for an appointment. Let them know you were seen in the Emergency Department and that we ask that you be seen in follow up. We will electronically transmit a record of today's note if your PCP is in our system. Came into the ER concerned because you had to miss work today due to her endometriosis pain acting up; also feeling like her heart was going fast and worried. You are planning to have your uterus removed later this month with your doctor in [place], we did check your urine today and this looks fine no evidence of a urinary tract infection. We did not do additional labs or imaging as you have this known history of endometriosis. It sounds like the medications you have tried have not been helping much for your pain including the hydrocodone that you received after your recent visit here in the emergency department. I prescribed you a few tabs of stronger medicine. But you should only take these if your other medicine is not helping; do not double up and take hydrocodone and oxycodone. I also provided you with a work note. I hope you feel better soon, if you have worsening symptoms please make sure you get re-evaluated. *If you do not have a primary care provider please contact the Resource line at [phone]. They will ask some questions about your medical history and help get you set up with a doctor in the community. *Return to Emergency Department if you should have any new, worsening or concerning symptoms, such as [fever greater than 101 F, shaking chills, worsening pain, persistent vomiting or other bothersome symptoms] Prescriptions: No Action gabapentin 800 mg tablet 800 mg PO BID Qty: 60 0RF ondansetron 4 mg tablet,disintegrating 4 mg PO QID PRN (Reason: nausea and vomiting) Qty: 10 0RF ihcbtacxgt-benihadlusivj-ermt [Fioricet] 50-300-40 mg capsule 1 cap PO Q6H PRN (Reason: pain) Qty: 10 0RF doxycycline hyclate 100 mg capsule 100 mg PO BID Qty: 14 0RF gabapentin 800 mg tablet 800 mg PO BID Qty: 60 0RF celecoxib 200 mg capsule 200 mg PO DAILY PRN (Reason: pain) Qty: 30 0RF hydrocodone-acetaminophen 5-325 mg tablet 1 tab PO Q6H PRN (Reason: pain) Qty: 10 0RF doxycycline hyclate 100 mg capsule 100 mg PO BID Qty: 14 0RF gabapentin 800 mg tablet 800 mg PO BID Qty: 60 0RF celecoxib [Celebrex] 200 mg capsule 200 mg PO DAILY PRN (Reason: pain) Qty: 30 0RF hydrocodone-acetaminophen 5-325 mg tablet 1 tab PO Q6H PRN (Reason: pain) Qty: 10 0RF gabapentin 800 mg tablet 800 mg PO BID Qty: 30 0RF celecoxib [Celebrex] 200 mg capsule 200 mg PO DAILY PRN (Reason: pain) Qty: 20 0RF hydrocodone-acetaminophen 5-325 mg tablet 1 tab PO Q6H PRN (Reason: pain) Qty: 6 0RF doxycycline hyclate 100 mg capsule 100 mg PO BID Qty: 14 0RF sumatriptan succinate 50 mg tablet See Rx Instructions .ROUTE .COMPLEX Qty: 10 0RF Rx Instructions: take 1 tab at onset of headache; if no relief may repeat 1 tab after at least 2 hrs; max = 4 tabs/24 hr Referrals: Miscellaneous,Doctor, MD [Primary Care Provider] - Stand Alone Forms: Patient Portal/API, Work Release Note ED Sign-out <Sirena Pagan DO - Last Filed: 08/23/23 09:15> Cosign ED Attending Cosignature Attestation: I was available for consultation.
[2023-08-21 18:40] VITALS: BP 132/83; PULSE 109; RESP 16; TEMP 37.3; O2SAT 99
== END 2023-08-21 19:26 | disposition home or self-care (01) ==
PROVIDERS: Emergency Provider Student in an Organized Health Care Education/Training Program
DX: N80.9 Endometriosis, unspecified (principal); R00.0 Tachycardia, unspecified; F41.9 Anxiety disorder, unspecified; R10.9 Unspecified abdominal pain
CPT/HCPCS: 81003; 93005; 99282; 99283

== ENCOUNTER 2023-08-24 18:27 | Emergency (ER) | payer OTHER, SELFPAY ==
[2023-08-24 18:39] VITALS: BP 159/90; PULSE 95; RESP 18; TEMP 37.1; O2SAT 98; BMI 39.6
--- NOTE | 2023-08-24 20:02 | ED_ITS ---
HPI - Female Genitourinary General Chief complaint: Urogenital-Female Stated complaint: cramping, pelvic pain Time Seen by Provider: 08/24/23 19:44 Source: patient Mode of arrival: Ambulatory History of Present Illness HPI Narrative: 28-year-old female with reported history of migraines, endometriosis presents for 02/27 pelvic pain with some vaginal spotting. Patient has been seen numerous times in our emergency department recently for migraines and pelvic pains. Patient told PA at last ER visit that she had a hysterectomy scheduled in [place] at the end of the month. Patient had hydrocodone prescribed to her previously, which she stated has helped her pain. She states she has been taking Tylenol and Motrin without relief in his run out of the prescribed pain medications. Note: Patient stated she sees Dr. Lissa Woods in [facility] for her OBGYN care. I spoke with Dr. Woods's clinic, and they have no record of this patient in their system. Related Data Previous Rx's Medication Instructions Recorded kcmzxgvuly-nfhmoxbgbyngr-oaltsoeb 1 cap PO Q6H PRN pain #10 caps 08/01/23 50 mg-300 mg-40 mg capsule (Fioricet) gabapentin 800 mg tablet 800 mg PO BID #60 tabs 08/01/23 ondansetron 4 mg disintegrating 4 mg PO QID PRN nausea and 08/01/23 tablet vomiting #10 tabs sumatriptan succinate 50 mg tablet See Rx Instructions PO .COMPLEX 08/04/23 #10 tabs celecoxib 200 mg capsule 200 mg PO DAILY PRN pain #30 caps 08/19/23 celecoxib 200 mg capsule (Celebrex) 200 mg PO DAILY PRN pain #30 caps 08/19/23 doxycycline hyclate 100 mg capsule 100 mg PO BID #14 caps 08/19/23 doxycycline hyclate 100 mg capsule 100 mg PO BID #14 caps 08/19/23 gabapentin 800 mg tablet 800 mg PO BID #60 tabs 08/19/23 gabapentin 800 mg tablet 800 mg PO BID #60 tabs 08/19/23 hydrocodone 5 mg-acetaminophen 325 1 tab PO Q6H PRN pain #10 tabs 08/19/23 mg tablet hydrocodone 5 mg-acetaminophen 325 1 tab PO Q6H PRN pain #10 tabs 08/19/23 mg tablet celecoxib 200 mg capsule (Celebrex) 200 mg PO DAILY PRN pain #20 caps 08/20/23 doxycycline hyclate 100 mg capsule 100 mg PO BID #14 caps 08/20/23 gabapentin 800 mg tablet 800 mg PO BID #30 tabs 08/20/23 hydrocodone 5 mg-acetaminophen 325 1 tab PO Q6H PRN pain #6 tabs 08/20/23 mg tablet Allergies Allergy/AdvReac Type Severity Reaction Status Date / Time latex AdvReac Hives Verified 08/19/23 08:25 Review of Systems Review of Systems Narrative: see HPI Patient History tobacco type: vaping alcohol intake frequency: other Last Alcoholic Drink: none Substance Use Type: does not use Exam Initial Vital Signs Initial Vital Signs: Vital Signs Temperature 98.8 F 08/24/23 18:39 Pulse Rate 95 H 08/24/23 18:39 Respiratory Rate 18 08/24/23 18:39 Blood Pressure 159/90 H 08/24/23 18:39 Pulse Oximetry 98 08/24/23 18:39 Oxygen Delivery Method Room Air 08/24/23 18:39 Const: Awake, alert, no acute distress, nontoxic appearing Cardiac: regular rate, regular rhythm RESP: unlabored, clear bilaterally, no wheezing GI: Soft, nontender, nondistended, no rebound, no guarding MSK: Atraumatic, full range of motion, pulses equal Skin: Warm, Dry, intact, no rashes Neuro: AO x3, CN II-XII grossly intact, moves all extremities Course Orders Ordered: Discontinued Medications Diazepam (Diazepam 10 Mg/2 Ml Syringe) 2 mg IV NOW ONE Stop: 08/24/23 20:37 Last Admin: 08/24/23 20:50 Dose: 2 mg Documented By: GLORIA Acetaminophen (Ofirmev) 1,000 mg in 100 mls @ 400 mls/hr IV NOW ONE Stop: 08/24/23 20:50 Last Infusion: 08/24/23 21:33 Dose: Infused Documented By: Admin: 08/24/23 20:50 Dose: 400 mls/hr Documented By: GLORIA Sodium Chloride (Normal Saline 0.9%) 1,000 mls @ 1,000 mls/hr IV BOLUS ONE Stop: 08/24/23 21:35 Last Infusion: 08/24/23 21:55 Dose: Infused Documented By: Admin: 08/24/23 20:50 Dose: 1,000 mls/hr Documented By: GLORIA Ketorolac Tromethamine (Ketorolac 30 Mg/Ml Vial) 15 mg IV NOW ONE Stop: 08/24/23 20:37 Last Admin: 08/24/23 20:49 Dose: 15 mg Documented By: GLORIA Vital Signs Vital signs: Vital Signs - 8 hr 08/24/23 18:39 08/24/23 20:57 08/24/23 20:58 Temperature 98.8 F Pulse Rate 95 H 90 90 Respiratory Rate 18 Blood Pressure 159/90 H Pulse Oximetry 98 99 99 Oxygen Delivery Method Room Air 08/24/23 20:58 Temperature Pulse Rate Respiratory Rate Blood Pressure 146/87 H Pulse Oximetry Oxygen Delivery Method MDM - Female Genitourinary Lab Data 08/24/23 21:39 08/24/23 21:39 Labs: Lab Results 08/24/23 Range/Units 21:39 WBC 6.6 (4.5-11.0) X10^3/uL RBC 3.96 L (4.0-5.2) X10^6/uL Hgb 12.5 (12.0-16.0) g/dL Hct 36.8 (36-46) % MCV 92.9 (80-100) fL MCH 31.6 (26-34) PG MCHC 34.1 (30-36) % RDW 12.8 (11.6-14.8) % Plt Count 227 (150-400) X10^3/uL Neut % (Auto) 54.3 (50-75) % Lymph % (Auto) 38.1 (25-40) % Whitley % (Auto) 5.5 (3-14) % Eos % (Auto) 1.4 L (2-4) % Baso % (Auto) 0.7 (0-2) % Neut # (Auto) 3600 (1300-8540) /uL Lymph # (Auto) 2500 (2279-8349) /uL Whitley # (Auto) 400 (0-900) /uL Eos # (Auto) 100 (0-450) /uL Baso # (Auto) 0 (0-100) /uL Sodium 138 (137-145) mmol/L Potassium 4.1 (3.4-5.1) mmol/L Chloride 111 H (98-107) mmol/L Carbon Dioxide 26 (22-32) mmol/L BUN 10 (7-17) mg/dL Creatinine 0.63 (0.52-1.04) mg/dL Estimated GFR > 60 (>60) mL/min BUN/Creatinine Ratio 15.9 (6-22) Glucose 90 (70-100) mg/dL Calcium 8.0 L (8.4-10.2) mg/dL Total Bilirubin 0.3 (0.2-1.3) mg/dL AST 18 (14-36) IU/L ALT 16 (<35) IU/L Alkaline Phosphatase 50 (38-126) U/L Total Protein 6.4 (6.3-8.2) g/dL Albumin 3.5 (3.5-5.0) g/dL Globulin 2.9 (1.7-4.1) g/dL Albumin/Globulin Ratio 1.2 (1.0-2.8) MDM Narrative Medical decision making narrative: Pelvic pain in patient with reported history of endometriosis. Numerous ER visits for different complaints in the last several weeks. History today is slightly inconsistent from previous ER notes. Patient was from out of town and with varying histories I decided to reach out to patient's reported OBGYN in [facility]. The physician's office has no record of this patient and they do not know who she was. I suspect there may be a component of drug-seeking behavior to this patient's care, however since there are no imaging studies a pelvic ultrasound was ordered. We will not give narcotics, Tylenol, Toradol, Valium ordered. Prior to obtaining pelvic ultrasound patient told nursing staff she wanted to leave. Laboratory work obtained thus far is unremarkable, no change from baseline. No indication for narcotic pain medication to be prescribed at this time. Discharge Plan Departure Patient Disposition: Home Clinical Impression: Pelvic pain Instructions: DI for Pelvic Pain Activity Restrictions/Additional Instructions: Take Tylenol and ibuprofen as needed for pain. I attempted to reach out to your surgeon's office however I was unable to confirm that you were a patient of Dr. Lissa Woods. Please reach out to your surgeon's office if you continue to experience pain as they should be the ones to help manage your pain medications. Prescriptions: No Action gabapentin 800 mg tablet 800 mg PO BID Qty: 60 0RF ondansetron 4 mg tablet,disintegrating 4 mg PO QID PRN (Reason: nausea and vomiting) Qty: 10 0RF kxykhfuecp-npjkjrjttgmuk-vclf [Fioricet] 50-300-40 mg capsule 1 cap PO Q6H PRN (Reason: pain) Qty: 10 0RF doxycycline hyclate 100 mg capsule 100 mg PO BID Qty: 14 0RF gabapentin 800 mg tablet 800 mg PO BID Qty: 60 0RF celecoxib 200 mg capsule 200 mg PO DAILY PRN (Reason: pain) Qty: 30 0RF hydrocodone-acetaminophen 5-325 mg tablet 1 tab PO Q6H PRN (Reason: pain) Qty: 10 0RF doxycycline hyclate 100 mg capsule 100 mg PO BID Qty: 14 0RF gabapentin 800 mg tablet 800 mg PO BID Qty: 60 0RF celecoxib [Celebrex] 200 mg capsule 200 mg PO DAILY PRN (Reason: pain) Qty: 30 0RF hydrocodone-acetaminophen 5-325 mg tablet 1 tab PO Q6H PRN (Reason: pain) Qty: 10 0RF gabapentin 800 mg tablet 800 mg PO BID Qty: 30 0RF celecoxib [Celebrex] 200 mg capsule 200 mg PO DAILY PRN (Reason: pain) Qty: 20 0RF hydrocodone-acetaminophen 5-325 mg tablet 1 tab PO Q6H PRN (Reason: pain) Qty: 6 0RF doxycycline hyclate 100 mg capsule 100 mg PO BID Qty: 14 0RF sumatriptan succinate 50 mg tablet See Rx Instructions .ROUTE .COMPLEX Qty: 10 0RF Rx Instructions: take 1 tab at onset of headache; if no relief may repeat 1 tab after at least 2 hrs; max = 4 tabs/24 hr Referrals: Miscellaneous,Doctor, MD [Primary Care Provider] - Stand Alone Forms: Patient Portal/API
[2023-08-24] MEDS: KETOROLAC 30 MG/ML VIAL 15 MG IV (20:49)
[2023-08-24] MEDS: ACETAMINOPHEN IV 1,000 MG/100 ML VIAL 400 MG IV (20:50)
[2023-08-24] MEDS: SODIUM CHLORIDE 0.9% 1,000 ML 1000 ML IV (20:50)
[2023-08-24] MEDS: diazePAM 10 MG/2 ML SYRINGE 2 MG IV (20:50)
[2023-08-24 20:57] VITALS: PULSE 90; O2SAT 99
[2023-08-24 20:58] VITALS: BP 146/87; PULSE 90; O2SAT 99
[2023-08-24 21:00] VITALS: PULSE 93; O2SAT 98
[2023-08-24 21:01] VITALS: BP 139/91; PULSE 88; O2SAT 99
[2023-08-24 21:30] VITALS: BP 150/101; PULSE 77; O2SAT 100
[2023-08-24 21:56] LABS: Add Manual Diff / Slide Review NO; Basophils Absolute Auto 0 /uL (0-100); Basophils Percent Auto 0.7 % (0-2); Eosinophils Absolute Auto 100 /uL (0-450); Eosinophils Percent Auto 1.4 % (2-4); Hematocrit 36.8 % (36-46); Hemoglobin 12.5 g/dL (12.0-16.0); Lymphocytes Absolute Auto 2500 /uL (1100-4500); Lymphocytes Percent Auto 38.1 % (25-40); Mean Corpuscular HGB Conc 34.1 % (30-36); Mean Corpuscular Hemoglobin 31.6 PG (26-34); Mean Corpuscular Volume 92.9 fL (80-100); Monocytes Absolute Auto 400 /uL (0-900); Monocytes Percent Auto 5.5 % (3-14); Neutrophils Absolute Auto 3600 /uL (1500-7000); Neutrophils Percent Auto 54.3 % (50-75); Platelet Count 227 X10^3/uL (150-400); Red Blood Cell Count 3.96 X10^6/uL (4.0-5.2); Red Cell Distribution Width 12.8 % (11.6-14.8); White Blood Cell Count 6.6 X10^3/uL (4.5-11.0)
[2023-08-24 22:03] LABS: Alanine Aminotransferase 16 IU/L (<35); Albumin 3.5 g/dL (3.5-5.0); Albumin Globulin Ratio 1.2 (1.0-2.8); Alkaline Phosphatase 50 U/L (38-126); Aspartate Aminotransferase 18 IU/L (14-36); BUN Creatinine Ratio 15.9 (6-22); Bilirubin Total 0.3 mg/dL (0.2-1.3); Blood Urea Nitrogen 10 mg/dL (7-17); Carbon Dioxide 26 mmol/L (22-32); Chloride 111 mmol/L (98-107); Estimated Glomerular Filt Rate > 60 mL/min (>60); Globulin 2.9 g/dL (1.7-4.1); Glucose 90 mg/dL (70-100); HEMOLYSIS 20 (0-50); Potassium 4.1 mmol/L (3.4-5.1); Sodium 138 mmol/L (137-145); Total Protein 6.4 g/dL (6.3-8.2)
== END 2023-08-24 21:57 | disposition home or self-care (01) ==
PROVIDERS: Emergency Provider Emergency Medicine
DX: R10.2 Pelvic and perineal pain (principal); Z79.899 Other long term (current) drug therapy
CPT/HCPCS: 80053; 85025; 96365; 96375; 99283; 99284; J0136; J1885; J3360